=== PATIENT | male | born 1965 | race Caucasian/White ===

== ENCOUNTER 2019-04-17 09:51 | Inpatient (IN) | payer OTHER ==
[2019-04-17] MEDS ORDERED: Lantus Insulin SQ SCH (10:00)
[2019-04-17] MEDS ORDERED: Zofran 4 MG/2 ML VIAL IV PRN (10:48)
[2019-04-17] MEDS ORDERED: TYLENOL 325 MG PO PRN (11:00)
[2019-04-17] MEDS ORDERED: Colace 100 MG PO PRN (11:00)
[2019-04-17] MEDS: Sodium Chloride 0.9% 1000 ML 1,000 ML IV SCH ×2 (12:35→23:00)
[2019-04-17] MEDS: MORPHINE SULFATE 2 MG INJ IV PRN ×4 (12:38→22:21)
[2019-04-17 13:08] LABS: BASOPHIL % 0.3 % (0.0-0.4); Basophil (Absolute #) 0.03 (0-0.4); Eosinophil (Absolute #) 0.18 (0-0.5); Hematocrit 49.9 % (42-50); Hemoglobin 17.6 gm/dl (12.5-18.0); Lymphocyte (Absolute #) 2.67 (1.0-4.6); Lymphocytes % 30.1 % (24.0-44.0); Mean Cell Volume 85.3 fl (78-100); Mean Corpuscular Hemoglobin 30.1 pg (26-32); Mean Corpuscular Hgb Concent. 35.3 g/dl (32-36); Mean Platelet Volume 10.9 fl (7.5-11.0); Monocytes % 7.9 % (0.0-12.0); Neutrophil % 59.7 % (36.0-66.0); Platelet Count 233 K/mm3 (150-450); Red Blood Count 5.85 M/mm3 (4.1-5.6); Red Cell Distribution Width 12.9 % (11.5-14.0); White Blood Count 8.9 K/mm3 (4.0-10.5)
[2019-04-17 13:37] LABS: ALBUMIN 4.3 g/dL (3.5-5.0); ALKALINE PHOSPHATASE 123 U/L (38-126); AMYLASE 120 U/L (30-110); BLOOD UREA NITROGEN 16 mg/dL (9-20); CHLORIDE 102 mmol/L (98-107); Calcium 9.2 mg/dL (8.4-10.2); Carbon Dioxide 24 mmol/L (22-30); Creatinine 1 0.51 mg/dL (0.66-1.25); Direct Bilirubin 0.3 mg/dL (0.0-0.4); LIPASE 425 U/L (23-300); Potassium 4.1 mmol/L (3.5-5.1); SGOT/AST 19 U/L (17-59); SGPT/ALT 20 U/L (0-50); SODIUM 135 mmol/L (137-145); Total Protein 8.2 g/dL (6.3-8.2)
[2019-04-17 14:39] LABS: Glucose 324 mg/dL (74-106)
[2019-04-17] MEDS: Nicoderm CQ 21 MG TOP SCH (16:12)
[2019-04-17] MEDS: HUMALOG SQ PRN ×2 (18:59→22:05)
[2019-04-18] MEDS: MORPHINE SULFATE 2 MG INJ IV PRN (04:44)
[2019-04-18] MEDS: Sodium Chloride 0.9% 1000 ML 1,000 ML IV SCH (08:36)
--- NOTE | 2019-04-18 08:40 | PCM.HP ---
History of Present Illness - Chief Complaint Chief Complaint: Pancreatitis Date: 04/18/19 History of Present Illness: is a 53 year old male with history of pancreatitis. He presented to my clinic for follow up from being at outside ER for pancreatitis on 04/14/19. He had a CT scan done there. He was sent home from the ER. He was found to have a lung nodule on chest CT and concern for possible aneursym on chest CT with measurement of ascending aorta at 4 cm. Patient reports continued boring pain from epigastric area to back and that the morphine is not helping much. I offered dilaudid and he states he can't take that. He would like to try more solid foods. He reports he hasn't been drinking very much but had a sprite and some juice. He states he will be able to fill his medications when he is discharged. He wants to quit smoking and wants to use nicotine patches for that. He denies using alcohol. He has hx of cholecystectomy in the past. He is suppose to take atorvastatin, glipizide, lantus, lisinopril and pantoprazole at home but has not been doing this. - Review of Systems Constitutional: No Symptoms Eyes: No Symptoms Ears, Nose, & Throat: No Symptoms Respiratory: No Symptoms Cardiac: No Symptoms Abdominal/Gastrointestinal: Abdominal Pain, No Nausea, No Vomiting, No Diarrhea Genitourinary Symptoms: No Symptoms Musculoskeletal: No Symptoms Skin: No Symptoms Neurological: No Symptoms Medications & Allergies Home Medications: Home Medication List No Reportable Medications [No Reported Medications] 04/17/19 [History Confirmed 04/17/19] Allergies/Adverse Reactions: Allergies Allergy/AdvReac Type Severity Reaction Status Date / Time hydromorphone HCl AdvReac ANXIETY Verified 04/17/19 11:51 [From Dilaudid] - Past Medical History Past Medical History: Yes Neurological History: No Pertinent History ENT History: No Pertinent History Cardiac History: Hypertension Respiratory History: No Pertinent History Endocrine Medical History: Diabetes Type II, Other (hyperlipidemia.) Musculoskelatal History: No Pertinent History GI Medical History: Pancreatitis History: No Pertinent History Pyscho-Social History: Anxiety Male Reproductive Disorders: No Pertinent History Comment: bulging disc - Past Surgical History Past Surgical History: Yes Neuro Surgical History: No Pertinent History Cardiac History: No Pertinent History Respiratory Surgery: No Pertinent History GI Surgical History: Cholecystectomy Genitourinary Surgical Hx: No Pertinent History Musculskeletal Surgical Hx: Orthopedic Surgery Male Surgical History: No Pertinent History Other Surgical History: carpal tunnel L hand - Social History Smoking Status: Current every day smoker How long have you smoked: 40 years Exposure to second hand smoke: Yes Alcohol: None Drug Use: none - Physical Exam Vital Signs: Vital Signs - 24 hr Temp Pulse Resp BP Pulse Ox 04/18/19 07:41 98.4 F 74 18 123/62 94 L 04/18/19 04:00 98.2 F 75 18 121/75 93 L 04/18/19 00:00 98.4 F 74 18 129/75 94 L 04/17/19 20:00 98.4 F 80 20 128/75 94 L 04/17/19 16:00 98.2 F 82 18 124/76 95 04/17/19 15:55 18 04/17/19 12:06 98.1 F 93 H 18 153/63 96 04/17/19 10:16 98.1 F 93 H 18 153/63 96 04/17/19 10:06 98.1 F 93 H 18 153/83 96 General Appearance: no apparent distress Neurologic Exam: alert, normal mood/affect Respiratory Exam: normal breath sounds, lungs clear, No crackles/rales, No rhonchi, No wheezing Cardiovascular Exam: regular rate/rhythm, normal heart sounds, No murmur, No friction rub, No gallop Gastrointestinal/Abdomen Exam: soft, normal bowel sounds, tenderness, No distention, No mass, No guarding Extremity Exam: other (no c/c/e) Results - Labs Lab/Micro Results: Accuchecks Date 04/17/19 Time 21:30 Accucheck Value: 194 Accucheck Value: 212 Accucheck Value: 302 Lab Results-Last 24 Hours 04/17/19 04/17/19 04/17/19 Range/Units 12:45 12:45 13:00 WBC 8.9 (4.0-10.5) K/mm3 RBC 5.85 H (4.1-5.6) M/mm3 Hgb 17.6 (12.5-18.0) gm/dl Hct 49.9 (42-50) % MCV 85.3 (78-100) fl MCH 30.1 (26-32) pg MCHC 35.3 (32-36) g/dl RDW 12.9 (11.5-14.0) % Plt Count 233 (150-450) K/mm3 MPV 10.9 (7.5-11.0) fl Gran % 59.7 (36.0-66.0) % Eos # (Auto) 0.18 (0-0.5) Absolute Lymphs (auto) 2.67 (1.0-4.6) Absolute Monos (auto) 0.70 (0.0-1.3) Lymphocytes % 30.1 (24.0-44.0) % Monocytes % 7.9 (0.0-12.0) % Eosinophils % 2.0 (0.00-5.0) % Basophils % 0.3 (0.0-0.4) % Absolute Granulocytes 5.30 (1.4-6.9) Basophils # 0.03 (0-0.4) Sodium 135 L (137-145) mmol/L Potassium 4.1 (3.5-5.1) mmol/L Chloride 102 (98-107) mmol/L Carbon Dioxide 24 (22-30) mmol/L Anion Gap 13.0 (5-15) MEQ/L BUN 16 (9-20) mg/dL Creatinine 0.51 L (0.66-1.25) mg/dL Estimated GFR > 60.0 ML/MIN Glucose 324 H (74-106) mg/dL Hemoglobin A1c 12.57 H (4.5-6.0) % Calcium 9.2 (8.4-10.2) mg/dL Total Bilirubin 0.50 (0.2-1.3) mg/dL Direct Bilirubin 0.3 (0.0-0.4) mg/dL AST 19 (17-59) U/L ALT 20 (0-50) U/L Alkaline Phosphatase 123 (38-126) U/L Serum Total Protein 8.2 (6.3-8.2) g/dL Albumin 4.3 (3.5-5.0) g/dL Amylase 120 H (30-110) U/L Lipase 425 H (23-300) U/L TSH 3rd Generation 2.060 (0.47-4.68) mIU/L Accuchecks Date 04/17/19 Time 21:30 Accucheck Value: 194 Accucheck Value: 212 Accucheck Value: 302 - Radiology Impressions Radiology Exams & Impressions: Radiology Procedures Category Date Time Status ECHO W/2D AND DOPPLER [US] Routine Exams 04/17/19 10:45 Taken Assessment/Plan (1) Acute pancreatitis Current Visit: No Status: Acute Assessment & Plan: Continue with IV fluids and IV pain medication. Try to advance diet if tolerated. Will check lipid panel to look for high triglycerides that may be causing pancreatitis. Code(s): K85.9 - ACUTE PANCREATITIS, UNSPECIFIED * DO NOT USE * (2) Diabetes mellitus type 2, uncontrolled Current Visit: Yes Status: Acute Assessment & Plan: Diabetes is uncontrolled due to patient noncompliance. Will increase lantus from 20 units to 30 units and continue low dose sliding scale of short acting insulin. Code(s): E11.65 - TYPE 2 DIABETES MELLITUS WITH HYPERGLYCEMIA (3) Mixed hyperlipidemia Current Visit: Yes Status: Acute Assessment & Plan: Lipid panel ordered. Not done this am. Scheduled for tomorrow. Code(s): E78.2 - MIXED HYPERLIPIDEMIA (4) Essential hypertension Current Visit: Yes Status: Acute Assessment & Plan: Off of tariq inhibitor at this time. Blood pressure good right now. Code(s): I10 - ESSENTIAL (PRIMARY) HYPERTENSION (5) GERD (gastroesophageal reflux disease) Current Visit: Yes Status: Acute Assessment & Plan: Will start IV pantoprazole. Code(s): K21.9 - GASTRO-ESOPHAGEAL REFLUX DISEASE WITHOUT ESOPHAGITIS (6) Lung nodule, solitary Current Visit: Yes Status: Acute Assessment & Plan: Outpatient follow up planned with class a lineman. Code(s): R91.1 - SOLITARY PULMONARY NODULE (7) Dilatation of aorta Current Visit: Yes Status: Acute Assessment & Plan: echo done, no reading yet. outpatient follow up planned with cardiology. Code(s): I77.819 - AORTIC ECTASIA, UNSPECIFIED SITE (8) Tobacco abuse Current Visit: Yes Status: Acute Assessment & Plan: Patient wants to quit and wants nicotine patches at discharge. Code(s): Z72.0 - TOBACCO USE
[2019-04-18] MEDS: MORPHINE SULFATE 4 MG INJ IV PRN ×4 (09:18→21:15)
[2019-04-18] MEDS: PROTONIX 40 MG IV IV SCH (09:18)
[2019-04-18] MEDS: Lantus Insulin SQ SCH (09:19)
[2019-04-18] MEDS: Nicoderm CQ 21 MG TOP SCH (15:21)
[2019-04-18] MEDS: HUMALOG SQ PRN (17:32)
[2019-04-18] MEDS ORDERED: ZOCOR 20MG PO SCH (22:00)
[2019-04-19] MEDS: MORPHINE SULFATE 4 MG INJ IV PRN (04:43)
[2019-04-19 05:16] LABS: Risk Ratio 8.8
[2019-04-19 07:43] VITALS: BP 119/76; PULSE 73; O2SAT 96
--- NOTE | 2019-04-19 07:45 | PCM.DCORD ---
- Discharge Discharge Date: 04/19/19 Disposition: Home, Self-Care Condition: Good Prescriptions: New Atorvastatin Calcium 40 mg PO DAILY #30 tablet Glipizide [Glipizide ER] 10 mg PO DAILY #30 tab.er.24 Nicotine 21 mg [Nicoderm CQ 21 MG] 21 mg TOP Q24H #30 patch Hydrocodone/APAP 5-325 Tab^^^ [[place] 5-325 Tablet^^^] 1 each PO QID PRN #24 tablet MDD 6 PRN Reason: Pain Pantoprazole 40 mg [Protonix 40 mg IV] 40 mg PO DAILY #30 vial Lisinopril 10 mg [Zestril 10 MG] 10 mg PO DAILY #30 tablet Follow up with: ROSS SAHU [Primary Care Provider] - 1 Week
[2019-04-19] MEDS: PROTONIX 40 MG IV IV SCH (07:51)
[2019-04-19] MEDS: Lantus Insulin SQ SCH (09:06)
--- NOTE | 2019-04-20 10:41 | ECHO ---
Transthoracic echocardiographic examination and color Doppler was done on 04/17/2019. INDICATION: Hypertension. IMPRESSION: 1) NO REGIONAL WALL MOTION ABNORMALITY. ESTIMATED GLOBAL LEFT VENTRICULAR EJECTION FRACTION OF ABOUT 60 TO 65%. 2) TRACE TRICUSPID REGURGITATION. RIGHT VENTRICULAR SYSTOLIC PRESSURE OF 29 MM OF MERCURY. 3) LEFT VENTRICULAR HYPERTROPHY. 4) LEFT VENTRICULAR DIASTOLIC DYSFUNCTION. The left ventricle is visualized and demonstrated adequate motion of all the segments. Estimated global left ventricular ejection fraction between 60 and 65%. There is mild left ventricular hypertrophy. The mitral valve is seen and this opens adequately. There is no significant mitral regurgitation. Tissue Doppler study of lateral mitral annulus suggestive of left ventricular diastolic dysfunction. The aortic valve opens adequately. There is no significant gradient across the left ventricular outflow tract. The right side chambers are normal with normal right ventricular contractility. There is trace tricuspid regurgitation. The right ventricular systolic pressure of 29 mm of Mercury.
--- NOTE | 2019-04-20 11:53 | DS ---
DISCHARGE DIAGNOSES: 1) ACUTE PANCREATITIS. 2) DIABETES MELLITUS TYPE 2, UNCONTROLLED. 3) HYPERLIPIDEMIA. 4) HYPERTENSION. 5) GASTROESOPHAGEAL REFLUX DISEASE. 6) LUNG NODULE. 7) DILATATION OF THE AORTA. 8) TOBACCO ABUSE. DISCHARGE PHYSICAL EXAMINATION: VITALS: Temperature current 98.0F, temperature 99.0F, heart rate 73, respiratory rate 18, blood pressure 119/76. Oxygen saturation 96% on room air. GENERAL: The patient is lying in bed a pleasant talkative man in no acute distress. CVS: He has a regular rate and rhythm. No murmurs, gallops or rubs. CHEST: Clear to auscultation bilaterally. No crackles or wheezes. ABDOMEN: Soft, nontender, nondistended with normal bowel sounds. EXTREMITIES: No clubbing, cyanosis or edema. SKIN: Warm, dry and intact. HOSPITAL COURSE: 1) ACUTE PANCREATITIS: He was given IV fluids and a clear liquid diet and this was advanced to full diet which he tolerated well. His pain was controlled with IV morphine 4 mg every two hours as needed. The patient reported he did want to go home with some medication. We discussed that this will be short term and he would need to keep it in a safe place and not share it with anyone. INSPECT was reviewed and no prescriptions were found for the patient for the past year. The patient will follow up with me closely in clinic. He does have a history of pancreatitis and denies alcohol use and has had his gallbladder taken out already. His triglycerides were slightly elevated and this could contribute to pancreatitis. 2) DIABETES MELLITUS TYPE 2, UNCONTROLLED: The patient had been off all of his medications. He has a history of noncompliance. He reported he would be taking his medicines. He wanted to try Lantus 10 instead of vile and so this was sent along with the glipizide again to follow up closely in the clinic. His hemoglobin A1C was 12.5. 3) MIXED HYPERLIPIDEMIA: His total cholesterol is 201, triglycerides 260, LDL 152, HDL 23. He had been noncompliant with his statin so this was restarted. 4) HYPERTENSION: He was restarted on his home antihypertensive medicine. 5) GASTROESOPHAGEAL REFLUX DISEASE: Will restart him on proton pump inhibitor at home. I was giving this to him IV here in the hospital. 6) LUNG NODULE: This was found on CT scan done for the pancreatitis in an outside emergency room and he has follow up scheduled with a diving fisher. 7) DILATATION OF THE AORTA: Again, found on CT scan on outside emergency room and he is scheduled for follow up with fiber optic technician. 8) TOBACCO ABUSE: The patient states he wants to quit. Script was sent for nicotine patches to help with this. He was instructed not to smoke while on the nicotine patch. DISCHARGE MEDICATIONS: Please see the discharge order. DISPOSITION: The patient was discharged to home in fair condition to follow up closely with me in the clinic.
== END 2019-04-19 09:10 | disposition home or self-care (01) | DRG 440 ==
LOC: MED SURG 10:06
PROVIDERS: ADMIT Internal Medicine; ATTEND Internal Medicine
DX: K85.90 Acute pancreatitis without necrosis or infection, unspecified (principal); E11.65 Type 2 diabetes mellitus with hyperglycemia; E78.2 Mixed hyperlipidemia; I10 Essential (primary) hypertension; K21.9 Gastro-esophageal reflux disease without esophagitis; R91.1 Solitary pulmonary nodule; I77.819 Aortic ectasia, unspecified site; Z72.0 Tobacco use
CPT/HCPCS: 36415; 80053; 80061; 80076; 82150; 82947; 82962; 83036; 83690; 83721; 84443; 85025; 93005; 93306; J1817; J2270; A9270-GY

== ENCOUNTER 2019-06-02 15:41 | Emergency (ER) | payer OTHER ==
[2019-06-02] MEDS ORDERED: BENADRYL 50 MG/ML IV ONE (15:57)
[2019-06-02] MEDS ORDERED: Reglan 10 MG/2 ML IV ONE (15:57)
[2019-06-02] MEDS ORDERED: MORPHINE SULFATE 2 MG INJ IV ONE (15:57)
[2019-06-02] MEDS ORDERED: Sodium Chloride 0.9% 1000 ML 1,000 ML IV STA (15:57)
[2019-06-02] MEDS ORDERED: TORAdol 30 mg Injection IV ONE (15:57)
--- NOTE | 2019-06-02 16:11 | ERPHSYRPT ---
- History of Present Illness Time Seen by Provider: 06/02/19 15:47 Source: patient Exam Limitations: no limitations Physician History: Patient is here with epigastric pain. Radiates into his back. Known history of pancreatitis. Has been going on for 3 days. No known falls or trauma. No fevers no chills. Location: mid-epigastric Quality: sharp Radiation: into back Severity: moderate Duration: 2-3 days Timing: gradual Modifying factors/associated signs and symptoms: has not taken any pain meds, called PCP, sent in here Timing/Duration: today Allergies/Adverse Reactions: hydromorphone HCl [From Dilaudid] Adverse Reaction (Verified 06/02/19 15:56) ANXIETY Hx Tetanus, Diphtheria Vaccination/Date Given: No Hx Influenza Vaccination/Date Given: No Hx Pneumococcal Vaccination/Date Given: No - Review of Systems Constitutional: No Fever, No Chills Eyes: No Symptoms Ears, Nose, & Throat: No Symptoms Respiratory: No Cough, No Dyspnea Cardiac: No Chest Pain, No Edema, No Syncope Abdominal/Gastrointestinal: Abdominal Pain, Nausea, No Vomiting, No Diarrhea Genitourinary Symptoms: No Dysuria Musculoskeletal: No Back Pain, No Neck Pain Skin: No Rash Neurological: No Dizziness, No Focal Weakness, No Sensory Changes Psychological: No Symptoms Endocrine: No Symptoms All Other Systems: Reviewed and Negative - Past Medical History Pertinent Past Medical History: Yes Neurological History: No Pertinent History ENT History: No Pertinent History Cardiac History: Hypertension Respiratory History: No Pertinent History Endocrine Medical History: Diabetes Type II, Other (hyperlipidemia.) Musculoskeletal History: No Pertinent History GI Medical History: Pancreatitis History: No Pertinent History Psycho-Social History: Anxiety Male Reproductive Disorders: No Pertinent History Other Medical History: bulging disc - Past Surgical History Past Surgical History: Yes Neuro Surgical History: No Pertinent History Cardiac: No Pertinent History Respiratory: No Pertinent History Gastrointestinal: Cholecystectomy Genitourinary: No Pertinent History Musculoskeletal: Orthopedic Surgery Male Surgical History: No Pertinent History Other Surgical History: carpal tunnel L hand - Social History Smoking Status: Current every day smoker How long have you smoked: 40 years Exposure to second hand smoke: Yes Drug Use: none Patient Lives Alone: No - Nursing Vital Signs Nursing Vital Signs: Initial Vital Signs Temperature 99.4 F 06/02/19 15:58 Pulse Rate 96 H 06/02/19 15:58 Blood Pressure 126/90 06/02/19 15:58 O2 Sat by Pulse Oximetry 98 06/02/19 15:58 Pain Scale Pain Intensity 0 - Physical Exam General Appearance: no apparent distress, alert Eye Exam: PERRL/EOMI, eyes nml inspection Ears, Nose, Throat Exam: normal ENT inspection, TMs normal, pharynx normal, moist mucous membranes Neck Exam: normal inspection, non-tender, supple, full range of motion Respiratory Exam: normal breath sounds, lungs clear, No respiratory distress Cardiovascular Exam: regular rate/rhythm, normal heart sounds, normal peripheral pulses Gastrointestinal/Abdomen Exam: soft, normal bowel sounds, tenderness ( Generalized abdominal pain without rebound or guarding), No mass Back Exam: normal inspection, normal range of motion, No CVA tenderness, No vertebral tenderness Extremity Exam: normal inspection, normal range of motion, pelvis stable Neurologic Exam: alert, oriented x 3, cooperative, normal mood/affect, nml cerebellar function, nml station & gait, sensation nml, No motor deficits Skin Exam: normal color, warm, dry, No rash Lymphatic Exam: No adenopathy Ordered Tests: Active Orders 24 hr Category Date Time Status EKG-ER Only STAT Care 06/02/19 15:57 Active IV Insertion STAT Care 06/02/19 15:57 Active ABDOMEN AND PELVIS W CONTRAST [CT] Stat Exams 06/02/19 15:58 Completed CHEST 2 VIEWS (PA AND LAT) Stat Exams 06/02/19 15:58 Completed AMYLASE Stat Lab 06/02/19 16:00 Completed CBC W DIFF Stat Lab 06/02/19 16:00 Completed CMP Stat Lab 06/02/19 16:00 Completed LIPASE Stat Lab 06/02/19 16:00 Completed Lactic Acid Stat Lab 06/02/19 16:10 Completed TROPONIN Q3H Lab 06/02/19 16:00 Completed TROPONIN Q3H Lab 06/02/19 19:00 Ordered TROPONIN Q3H Lab 06/02/19 22:00 Ordered TROPONIN Q3H Lab 06/03/19 01:00 Ordered TROPONIN Q3H Lab 06/03/19 04:00 Ordered UA W/RFX UR CULTURE Stat Lab 06/02/19 16:00 Completed Urine Triage Profile Stat Lab 06/02/19 16:00 Completed Medication Summary Discontinued Medications Generic Name Dose Route Start Last Admin Trade Name Freq PRN Reason Stop Dose Admin Diphenhydramine HCl 25 mg 06/02/19 15:57 06/02/19 16:24 Benadryl 50 Mg/Ml IV 06/02/19 15:58 25 mg STAT ONE Administration Diphenhydramine HCl Confirm 06/02/19 16:20 Benadryl 50 Mg/Ml Administered 06/02/19 16:21 Dose 50 mg .ROUTE .STK-MED ONE Sodium Chloride 1,000 mls @ 999 mls/hr 06/02/19 15:57 06/02/19 16:25 Sodium Chloride 0.9% 1000 Ml IV 06/02/19 16:57 999 mls/hr .Q1H1M STA Administration Sodium Chloride Confirm 06/02/19 16:20 Sodium Chloride 0.9% 1000 Ml Administered 06/02/19 16:21 Dose 1,000 mls @ ud .ROUTE .STK-MED ONE Ketorolac Tromethamine 30 mg 06/02/19 15:57 06/02/19 16:25 Toradol 30 Mg Injection IV 06/02/19 15:58 30 mg STAT ONE Administration Ketorolac Tromethamine Confirm 06/02/19 16:20 Toradol 30 Mg Injection Administered 06/02/19 16:21 Dose 30 mg .ROUTE .STK-MED ONE Metoclopramide HCl 10 mg 06/02/19 15:57 06/02/19 16:24 Reglan 10 Mg/2 Ml IV 06/02/19 15:58 10 mg STAT ONE Administration Metoclopramide HCl Confirm 06/02/19 16:20 Reglan 10 Mg/2 Ml Administered 06/02/19 16:21 Dose 10 mg .ROUTE .STK-MED ONE Morphine Sulfate 2 mg 06/02/19 15:57 06/02/19 16:25 Morphine Sulfate 2 Mg Inj IV 06/02/19 15:58 2 mg STAT ONE Administration Morphine Sulfate Confirm 06/02/19 16:20 Morphine Sulfate 2 Mg Inj Administered 06/02/19 16:21 Dose 2 mg .ROUTE .STK-MED ONE Lab/Rad Data: Laboratory Result Diagrams 06/02/19 16:00 06/02/19 16:00 Laboratory Results 06/02/19 06/02/19 06/02/19 Range/Units 16:10 16:00 16:00 WBC (4.0-10.5) K/mm3 RBC (4.1-5.6) M/mm3 Hgb (12.5-18.0) gm/dl Hct (42-50) % MCV (78-100) fl MCH (26-32) pg MCHC (32-36) g/dl RDW (11.5-14.0) % Plt Count (150-450) K/mm3 MPV (7.5-11.0) fl Gran % (36.0-66.0) % Eos # (Auto) (0-0.5) Absolute Lymphs (auto) (1.0-4.6) Absolute Monos (auto) (0.0-1.3) Lymphocytes % (24.0-44.0) % Monocytes % (0.0-12.0) % Eosinophils % (0.00-5.0) % Basophils % (0.0-0.4) % Absolute Granulocytes (1.4-6.9) Basophils # (0-0.4) Sodium (137-145) mmol/L Potassium (3.5-5.1) mmol/L Chloride (98-107) mmol/L Carbon Dioxide (22-30) mmol/L Anion Gap (5-15) MEQ/L BUN (9-20) mg/dL Creatinine (0.66-1.25) mg/dL Estimated GFR ML/MIN Glucose (74-106) mg/dL Lactic Acid 1.5 (0.4-2.0) Calcium (8.4-10.2) mg/dL Total Bilirubin (0.2-1.3) mg/dL AST (17-59) U/L ALT (0-50) U/L Alkaline Phosphatase (38-126) U/L Troponin I (0.000-0.034) ng/mL Serum Total Protein (6.3-8.2) g/dL Albumin (3.5-5.0) g/dL Amylase (30-110) U/L Lipase (23-300) U/L Urine Color YELLOW (YELLOW) Urine Appearance CLEAR (CLEAR) Urine pH 6.0 (5-6) Ur Specific [place] 1.015 (1.005-1.025) Urine Protein 30 (Negative) Urine Ketones NEGATIVE (NEGATIVE) Urine Blood NEGATIVE (0-5) Papi/ul Urine Nitrite NEGATIVE (NEGATIVE) Urine Bilirubin NEGATIVE (NEGATIVE) Urine Urobilinogen 2 (0-1) mg/dL Ur Leukocyte Esterase NEGATIVE (NEGATIVE) Urine WBC (Auto) NONE (0-5) /HPF Urine RBC (Auto) NONE (0-2) /HPF U Epithel Cells (Auto) NONE (FEW) /HPF Urine Bacteria (Auto) NONE (NEGATIVE) /HPF Urine Mucus (Auto) SLIGHT (NEGATIVE) /HPF Urine Culture Reflexed NO (NO) Urine Glucose NEGATIVE (NEGATIVE) mg/dL Urine Opiates Level NEGATIVE (NEGATIVE) Ur Methadone NEGATIVE (NEGATIVE) Urine Barbiturates NEGATIVE (NEGATIVE) Ur Phencyclidine (PCP) NEGATIVE (NEGATIVE) Urine Amphetamine NEGATIVE (NEGATIVE) U Benzodiazepine Level NEGATIVE (NEGATIVE) Urine Cocaine NEGATIVE (NEGATIVE) Urine Marijuana (THC) NEGATIVE (NEGATIVE) 06/02/19 06/02/19 06/02/19 Range/Units 16:00 16:00 16:00 WBC 9.3 (4.0-10.5) K/mm3 RBC 5.56 (4.1-5.6) M/mm3 Hgb 16.7 (12.5-18.0) gm/dl Hct 48.8 (42-50) % MCV 87.8 (78-100) fl MCH 30.0 (26-32) pg MCHC 34.2 (32-36) g/dl RDW 13.4 (11.5-14.0) % Plt Count 262 (150-450) K/mm3 MPV 9.7 (7.5-11.0) fl Gran % 60.7 (36.0-66.0) % Eos # (Auto) 0.14 (0-0.5) Absolute Lymphs (auto) 2.57 (1.0-4.6) Absolute Monos (auto) 0.90 (0.0-1.3) Lymphocytes % 27.7 (24.0-44.0) % Monocytes % 9.7 (0.0-12.0) % Eosinophils % 1.5 (0.00-5.0) % Basophils % 0.4 (0.0-0.4) % Absolute Granulocytes 5.64 (1.4-6.9) Basophils # 0.04 (0-0.4) Sodium 136 L (137-145) mmol/L Potassium 4.1 (3.5-5.1) mmol/L Chloride 102 (98-107) mmol/L Carbon Dioxide 23 (22-30) mmol/L Anion Gap 16.2 H (5-15) MEQ/L BUN 13 (9-20) mg/dL Creatinine 0.63 L (0.66-1.25) mg/dL Estimated GFR > 60.0 ML/MIN Glucose 180 H (74-106) mg/dL Lactic Acid (0.4-2.0) Calcium 9.3 (8.4-10.2) mg/dL Total Bilirubin 0.80 (0.2-1.3) mg/dL AST 20 (17-59) U/L ALT 19 (0-50) U/L Alkaline Phosphatase 87 (38-126) U/L Troponin I < 0.012 (0.000-0.034) ng/mL Serum Total Protein 8.3 H (6.3-8.2) g/dL Albumin 4.5 (3.5-5.0) g/dL Amylase 100 (30-110) U/L Lipase 80 (23-300) U/L Urine Color (YELLOW) Urine Appearance (CLEAR) Urine pH (5-6) Ur Specific [place] (1.005-1.025) Urine Protein (Negative) Urine Ketones (NEGATIVE) Urine Blood (0-5) Papi/ul Urine Nitrite (NEGATIVE) Urine Bilirubin (NEGATIVE) Urine Urobilinogen (0-1) mg/dL Ur Leukocyte Esterase (NEGATIVE) Urine WBC (Auto) (0-5) /HPF Urine RBC (Auto) (0-2) /HPF U Epithel Cells (Auto) (FEW) /HPF Urine Bacteria (Auto) (NEGATIVE) /HPF Urine Mucus (Auto) (NEGATIVE) /HPF Urine Culture Reflexed (NO) Urine Glucose (NEGATIVE) mg/dL Urine Opiates Level (NEGATIVE) Ur Methadone (NEGATIVE) Urine Barbiturates (NEGATIVE) Ur Phencyclidine (PCP) (NEGATIVE) Urine Amphetamine (NEGATIVE) U Benzodiazepine Level (NEGATIVE) Urine Cocaine (NEGATIVE) Urine Marijuana (THC) (NEGATIVE) - Progress Progress: improved Progress Note: 06/02/19 16:10 differential diagnosis includes kidney stone, compression fracture, infection, UTI, triple AAA. STEMI, myocardial infarction, pancreatitis - basic labs including: CBC, lipase, CMP, UA, EKG, trop - insert IV for fluids, pain meds, nausea control - consider imaging: CT ab/pelvis 06/02/19 17:28 Labs and imaging probably shows acute pancreatitis. I did offer patient admission for continued fluids, pain control. He states he is feeling better. He would like to go home at this point in time. He is unsure of what causes his pancreatitis. Though it does appear that he has a history of this. Again I did offer patient admission to the hospital and he did declined. He will return here for any new or changing symptoms. He will follow-up with Dr. Sahu for abdominal reexam in 24 to 48 hours. - Departure Departure Disposition: Home Clinical Impression: Acute pancreatitis Condition: Stable Critical Care Time: No Referrals: ROSS SAHU [Primary Care Provider] - Instructions: Acute Abdomen (Belly Pain), Adult (DC) Prescriptions: Ondansetron HCl [Zofran] 4 mg PO TID PRN #10 tablet PRN Reason: Nausea/Vomiting
[2019-06-02] MEDS ORDERED: TORAdol 30 mg Injection ONE (16:20)
[2019-06-02] MEDS ORDERED: BENADRYL 50 MG/ML ONE (16:20)
[2019-06-02] MEDS ORDERED: Sodium Chloride 0.9% 1000 ML 1,000 ML ONE (16:20)
[2019-06-02] MEDS ORDERED: Reglan 10 MG/2 ML ONE (16:20)
[2019-06-02] MEDS ORDERED: MORPHINE SULFATE 2 MG INJ ONE (16:20)
[2019-06-02 16:21] LABS: Absolute Neutrophil Ct (ANC) 5.64 (1.4-6.9); BASOPHIL % 0.4 % (0.0-0.4); Basophil (Absolute #) 0.04 (0-0.4); Eosinophil % 1.5 % (0.00-5.0); Eosinophil (Absolute #) 0.14 (0-0.5); Hematocrit 48.8 % (42-50); Hemoglobin 16.7 gm/dl (12.5-18.0); Lymphocyte (Absolute #) 2.57 (1.0-4.6); Lymphocytes % 27.7 % (24.0-44.0); Mean Cell Volume 87.8 fl (78-100); Mean Corpuscular Hgb Concent. 34.2 g/dl (32-36); Mean Platelet Volume 9.7 fl (7.5-11.0); Monocytes % 9.7 % (0.0-12.0); Neutrophil % 60.7 % (36.0-66.0); Platelet Count 262 K/mm3 (150-450); Red Blood Count 5.56 M/mm3 (4.1-5.6); Red Cell Distribution Width 13.4 % (11.5-14.0); White Blood Count 9.3 K/mm3 (4.0-10.5)
[2019-06-02 16:23] LABS: Appearance CLEAR (CLEAR); Bilirubin NEGATIVE (NEGATIVE); Blood NEGATIVE Ery/ul (0-5); Glucose NEGATIVE (NEGATIVE); Ketones NEGATIVE (NEGATIVE); Leukocyte Esterase NEGATIVE (NEGATIVE); Mucus SLIGHT /HPF (NEGATIVE); Nitrite NEGATIVE (NEGATIVE); Protein,Urine Dip 30 (Negative); Specific Gravity 1.015 (1.005-1.025); Urobilinogen 2 mg/dL (0-1)
[2019-06-02 16:33] LABS: ALBUMIN 4.5 g/dL (3.5-5.0); ALKALINE PHOSPHATASE 87 U/L (38-126); AMYLASE 100 U/L (30-110); ANION GAP 16.2 MEQ/L (5-15); BLOOD UREA NITROGEN 13 mg/dL (9-20); CHLORIDE 102 mmol/L (98-107); Calcium 9.3 mg/dL (8.4-10.2); Carbon Dioxide 23 mmol/L (22-30); Creatinine 1 0.63 mg/dL (0.66-1.25); Glucose 180 mg/dL (74-106); LIPASE 80 U/L (23-300); Potassium 4.1 mmol/L (3.5-5.1); SGOT/AST 20 U/L (17-59); SGPT/ALT 19 U/L (0-50); SODIUM 136 mmol/L (137-145); Total Protein 8.3 g/dL (6.3-8.2)
[2019-06-02 16:37] LABS: Amphetamine,Urine NEGATIVE (NEGATIVE); Barbiturate,Urine NEGATIVE (NEGATIVE); Benzodiazepine,Urine NEGATIVE (NEGATIVE); Cocaine,Urine NEGATIVE (NEGATIVE); Methadone,Urine NEGATIVE (NEGATIVE); Opiate,Urine NEGATIVE (NEGATIVE); PCP,Urine NEGATIVE (NEGATIVE); THC,Urine NEGATIVE (NEGATIVE)
--- NOTE | 2019-06-02 17:12 | XRAY ---
Indication: Abdomen pain. Comparison: September 28, 2015. PA/lateral chest clear again with a few incidental calcified granulomas. Heart and mediastinal structures within normal limits. Bony thorax intact. Impression: Nonacute chest with evidence for old granulomatous disease.
--- NOTE | 2019-06-02 17:15 | XRAY ---
Indication: Abdomen/flank pain. History pancreatitis. Multiple contiguous axial images obtained through the abdomen and pelvis using 80 cc Isovue-370 contrast only. Comparison: September 28, 2015. Lung bases again demonstrates bibasilar dependent atelectasis without infiltrate or effusion. Small right middle lobe bleb. Heart is not enlarged. Noncontrasted stomach and bowel loops appear nonobstructed. New mild fluid distended small bowel loops with minimal fluid leveling, ileus versus enteritis. Normal air-filled appendix. There is again mild/moderate diffuse scattered colonic fecal debris. Head of the pancreas now demonstrates subtle haziness, possible early/mild pancreatitis. No free fluid/air. Stable cholecystectomy and large left lower pole renal cyst. Remaining liver, pancreas, spleen, adrenal glands, kidneys, ureters, and bladder appear unremarkable. Stable mild aortoiliac calcifications. No AAA or pathological retroperitoneal lymphadenopathy. Osseous structures intact. Impression: 1. New pancreatic head haziness. Rule out mild/early pancreatitis. 2. New mild fluid distended small bowel loops with minimal fluid leveling, ileus versus enteritis. 3. Again incidental diffuse fecal stasis without obstruction. 4. Stable large left renal cyst.
[2019-06-02 17:41] VITALS: BP 103/70; PULSE 85; O2SAT 97
== END 2019-06-02 18:12 | disposition home or self-care (01) ==
LOC: ED 15:41
DX: K85.90 Acute pancreatitis without necrosis or infection, unspecified (principal); F41.9 Anxiety disorder, unspecified; E11.9 Type 2 diabetes mellitus without complications; E78.5 Hyperlipidemia, unspecified; I10 Essential (primary) hypertension; Z72.0 Tobacco use
CPT/HCPCS: 36000; 36415; 71046; 74177; 80053; 80307; 81001; 82150; 83605; 83690; 84484; 85025; 93005; 96360; 96374; 96375; 99285; J1200; J1885; J2270

== ENCOUNTER 2020-06-06 22:10 | Emergency (ER) | payer OTHER ==
[2020-06-06] MEDS ORDERED: Sodium Chloride 0.9% 1000 ML 1,000 ML ONE (22:25)
[2020-06-06] MEDS ORDERED: Sodium Chloride 0.9% 1000 ML 1,000 ML IV SCH (22:30)
[2020-06-06 22:51] LABS: Absolute Neutrophil Ct (ANC) 4.78 (1.4-6.9); BASOPHIL % 0.5 % (0.0-0.4); Basophil (Absolute #) 0.05 (0-0.4); Eosinophil % 3.6 % (0.00-5.0); Eosinophil (Absolute #) 0.36 (0-0.5); Hematocrit 48.9 % (42-50); Hemoglobin 16.9 gm/dl (12.5-18.0); Lymphocyte (Absolute #) 3.68 (1.0-4.6); Lymphocytes % 36.7 % (24.0-44.0); Mean Cell Volume 87.8 fl (78-100); Mean Corpuscular Hemoglobin 30.3 pg (26-32); Mean Corpuscular Hgb Concent. 34.6 g/dl (32-36); Monocyte (Absolute #) 1.17 (0.0-1.3); Monocytes % 11.7 % (0.0-12.0); Neutrophil % 47.5 % (36.0-66.0); Platelet Count 237 K/mm3 (150-450); Red Blood Count 5.57 M/mm3 (4.1-5.6); Red Cell Distribution Width 13.4 % (11.5-14.0)
[2020-06-06 23:02] LABS: ALBUMIN 4.5 g/dL (3.5-5.0); ALKALINE PHOSPHATASE 94 U/L (38-126); ANION GAP 15.1 MEQ/L (5-15); BLOOD UREA NITROGEN 20 mg/dL (9-20); CHLORIDE 97 mmol/L (98-107); Calcium 9.5 mg/dL (8.4-10.2); Carbon Dioxide 26 mmol/L (22-30); Creatinine 1 0.83 mg/dL (0.66-1.25); EST GLOMERULAR FILTRATION RATE > 60.0 ML/MIN; Glucose 292 mg/dL (74-106); MAGNESIUM 2.1 mg/dL (1.6-2.3); Potassium 4.4 mmol/L (3.5-5.1); SGOT/AST 19 U/L (17-59); SGPT/ALT 24 U/L (0-50); SODIUM 133 mmol/L (137-145); Total Protein 7.9 g/dL (6.3-8.2)
--- NOTE | 2020-06-07 00:14 | ERPHSYRPT ---
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 Pt thinks it was an anxiety attack. 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 Pt denies any c/p at this time. Pt did not experience any sob or n/v. Pt did become diaphoretic and dizzy but states, "I was working in a very hot area". Pt denies any radiation with his chest pain. EMS reported BS of 338. Pt c/o headache to back of head. Physician History: Patient is a 54-year-old male presents to our ED for evaluation of chest pain. 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 Pain described as an ache localized to the left upper chest. Pain lasted approximately 10 minutes. However upon EMS arrival oxygen was placed and chest pain resolved. Patient was very anxious. He thinks his pain is partially due to anxiety. Patient felt mildly diaphoretic. He was slightly dizzy. Patient states he felt very hot. The pain was well localized. No radiation. Patient advises he is a diabetic. Glucose was 338. Patient had that he has a slight posterior head ache. No trauma. Patient voices no other complaints or concerns at this time. Patient advises that he has a history of a sending thoracic aneurysm. Timing/Duration: today Activities at Onset: none Quality: aching Location: substernal Chest Pain Radiation: no radiation Severity of Pain-Max: moderate Severity of Pain-Current: none Modifying Factors: Improves With: nothing Associated Symptoms: diaphoresis, headache, dizziness Prior Chest Pain/Cardiac Workup: no prior chest pain Nitro Today/Relief: no nitro taken today Aspirin Treatment Today: no aspirin today Allergies/Adverse Reactions: hydromorphone HCl [From Dilaudid] Adverse Reaction (Verified 06/06/20 22:29) ANXIETY itching Home Medications: Aspirin 81 gm Chew [Baby Aspirin 81 mg Chew] 81 mg PO DAILY 06/06/20 [History] Atorvastatin Calcium 20 mg PO DAILY 06/06/20 [History] Hx Tetanus, Diphtheria Vaccination/Date Given: Yes Hx Influenza Vaccination/Date Given: No Hx Pneumococcal Vaccination/Date Given: No Immunizations Up to Date: Yes Travel Risk - International Travel Have you traveled outside of the country in past 3 weeks: No - Coronavirus Screening Are you exhibiting any of the following symptoms?: No Close contact with a COVID-19 positive Pt in past 14-21 Days: No - Vaccine Status Have you recieved a Covid-19 vaccination: No - Review of Systems Constitutional: No Symptoms, No Fever, No Chills Eyes: No Symptoms Ears, Nose, & Throat: No Symptoms Respiratory: No Symptoms, No Cough, No Dyspnea Cardiac: No Symptoms, No Chest Pain, No Edema, No Syncope Abdominal/Gastrointestinal: No Symptoms, No Abdominal Pain, No Nausea, No Vomiting, No Diarrhea Genitourinary Symptoms: No Symptoms, No Dysuria Musculoskeletal: No Symptoms, No Back Pain, No Neck Pain Skin: No Symptoms, No Rash Neurological: No Symptoms, No Dizziness, No Focal Weakness, No Sensory Changes Psychological: No Symptoms Endocrine: No Symptoms Hematologic/Lymphatic: No Symptoms Immunological/Allergic: No Symptoms All Other Systems: Reviewed and Negative - Past Medical History Pertinent Past Medical History: Yes Neurological History: No Pertinent History ENT History: No Pertinent History Cardiac History: Hypertension Respiratory History: No Pertinent History Endocrine Medical History: Diabetes Type II, Other Musculoskeletal History: No Pertinent History GI Medical History: Gallbladder Disease, Pancreatitis History: No Pertinent History Psycho-Social History: Anxiety Male Reproductive Disorders: No Pertinent History Other Medical History: bulging disc, aortic aneurysm - Past Surgical History Past Surgical History: Yes Neuro Surgical History: No Pertinent History Cardiac: No Pertinent History Respiratory: No Pertinent History Gastrointestinal: Cholecystectomy Genitourinary: No Pertinent History Musculoskeletal: Orthopedic Surgery Male Surgical History: No Pertinent History Other Surgical History: carpal tunnel L hand - Social History Smoking Status: Current every day smoker How long have you smoked: 40 yrs Exposure to second hand smoke: No Drug Use: none Patient Lives Alone: No - Nursing Vital Signs Nursing Vital Signs: Initial Vital Signs Temperature 98.4 F 06/06/20 22:11 Pulse Rate 84 06/06/20 22:11 Respiratory Rate 18 06/06/20 22:11 Blood Pressure 118/74 06/06/20 22:11 O2 Sat by Pulse Oximetry 95 06/06/20 22:11 Pain Scale Pain Intensity 0 - Physical Exam General Appearance: no apparent distress, alert Eye Exam: PERRL/EOMI, eyes nml inspection Ears, Nose, Throat Exam: normal ENT inspection, moist mucous membranes Neck Exam: normal inspection, non-tender, supple, full range of motion Respiratory Exam: normal breath sounds, lungs clear, No respiratory distress Cardiovascular Exam: regular rate/rhythm, normal heart sounds Gastrointestinal/Abdomen Exam: soft, No tenderness, No mass Back Exam: normal inspection, No CVA tenderness, No vertebral tenderness Extremity Exam: normal inspection, normal range of motion Neurologic Exam: alert, oriented x 3, cooperative, normal mood/affect, sensation nml, No motor deficits Skin Exam: normal color, warm, dry Lymphatic Exam: adenopathy SpO2 Interpretation: normal SpO2: 96 O2 Delivery: Room Air - Course Nursing assessment & vital signs reviewed: Yes EKG Interpreted by Me: RATE ([id number]), Sinus Rhythm, NORMAL AXIS, NORMAL INTERVALS - CT Exams Chest CT Interpretation: Tele-radiologist Report (No evidence of pulmonary embolus. No evidence of acute pulmonary pathology. 6 mm groundglass nodule in the right lung upper lobe. Few minimally enlarged mediastinal lymph nodes. Left renal cyst.) Ordered Tests: Active Orders 24 hr Category Date Time Status Gynecology Teacher STAT Care 06/06/20 22:20 Active EKG-ER Only STAT Care 06/06/20 22:18 Active IV Insertion STAT Care 06/06/20 22:18 Active Pulse Oximetry (ED) STAT Care 06/06/20 22:18 Active CHEST WITH CONTRAST [CT] Stat Exams 06/06/20 22:42 Taken CBC W DIFF Stat Lab 06/06/20 22:45 Completed CMP Stat Lab 06/06/20 22:45 Completed MAGNESIUM Stat Lab 06/06/20 22:45 Completed POCT GLUCOSE Stat Lab 06/06/20 22:38 Completed TROPONIN Q3H Lab 06/06/20 22:45 Completed TROPONIN Q3H Lab 06/07/20 01:10 Completed TROPONIN Q3H Lab 06/07/20 04:30 Ordered TROPONIN Q3H Lab 06/07/20 07:30 Ordered TROPONIN Q3H Lab 06/07/20 10:30 Ordered UA W/RFX UR CULTURE Stat Lab 06/07/20 00:15 Completed Medication Summary Generic Name Dose Route Start Last Admin Trade Name Freq PRN Reason Stop Dose Admin Sodium Chloride 1,000 mls @ 50 mls/hr 06/06/20 22:30 06/06/20 22:27 Sodium Chloride 0.9% 1000 Ml IV 07/06/20 22:29 50 mls/hr .Q20H ANAYA Administration Lab/Rad Data: Laboratory Result Diagrams 06/06/20 22:45 06/06/20 22:45 Laboratory Results 06/07/20 06/07/20 06/06/20 Range/Units 01:10 00:15 22:45 WBC (4.0-10.5) K/mm3 RBC (4.1-5.6) M/mm3 Hgb (12.5-18.0) gm/dl Hct (42-50) % MCV (78-100) fl MCH (26-32) pg MCHC (32-36) g/dl RDW (11.5-14.0) % Plt Count (150-450) K/mm3 MPV (7.5-11.0) fl Gran % (36.0-66.0) % Eos # (Auto) (0-0.5) Absolute Lymphs (auto) (1.0-4.6) Absolute Monos (auto) (0.0-1.3) Lymphocytes % (24.0-44.0) % Monocytes % (0.0-12.0) % Eosinophils % (0.00-5.0) % Basophils % (0.0-0.4) % Absolute Granulocytes (1.4-6.9) Basophils # (0-0.4) Sodium (137-145) mmol/L Potassium (3.5-5.1) mmol/L Chloride (98-107) mmol/L Carbon Dioxide (22-30) mmol/L Anion Gap (5-15) MEQ/L BUN (9-20) mg/dL Creatinine (0.66-1.25) mg/dL Estimated GFR ML/MIN Glucose (74-106) mg/dL POC Glucometer (74 to 106) mg/dL Calcium (8.4-10.2) mg/dL Magnesium (1.6-2.3) mg/dL Total Bilirubin (0.2-1.3) mg/dL AST (17-59) U/L ALT (0-50) U/L Alkaline Phosphatase (38-126) U/L Troponin I < 0.012 < 0.012 (0.000-0.034) ng/mL Serum Total Protein (6.3-8.2) g/dL Albumin (3.5-5.0) g/dL Urine Color YELLOW (YELLOW) Urine Appearance CLEAR (CLEAR) Urine pH 6.0 (5-6) Ur Specific Gibson 1.035 (1.005-1.025) Urine Protein 30 (Negative) Urine Ketones TRACE (NEGATIVE) Urine Blood NEGATIVE (0-5) Papi/ul Urine Nitrite NEGATIVE (NEGATIVE) Urine Bilirubin NEGATIVE (NEGATIVE) Urine Urobilinogen 2 (0-1) mg/dL Ur Leukocyte Esterase NEGATIVE (NEGATIVE) Urine WBC (Auto) NONE (0-5) /HPF Urine RBC (Auto) NONE (0-2) /HPF U Epithel Cells (Auto) NONE (FEW) /HPF Urine Bacteria (Auto) NONE (NEGATIVE) /HPF Urine Culture Reflexed NO (NO) Urine Glucose >=500 (NEGATIVE) mg/dL 06/06/20 06/06/20 06/06/20 Range/Units 22:45 22:45 22:38 WBC 10.0 (4.0-10.5) K/mm3 RBC 5.57 (4.1-5.6) M/mm3 Hgb 16.9 (12.5-18.0) gm/dl Hct 48.9 (42-50) % MCV 87.8 (78-100) fl MCH 30.3 (26-32) pg MCHC 34.6 (32-36) g/dl RDW 13.4 (11.5-14.0) % Plt Count 237 (150-450) K/mm3 MPV 10.0 (7.5-11.0) fl Gran % 47.5 (36.0-66.0) % Eos # (Auto) 0.36 (0-0.5) Absolute Lymphs (auto) 3.68 (1.0-4.6) Absolute Monos (auto) 1.17 (0.0-1.3) Lymphocytes % 36.7 (24.0-44.0) % Monocytes % 11.7 (0.0-12.0) % Eosinophils % 3.6 (0.00-5.0) % Basophils % 0.5 (0.0-0.4) % Absolute Granulocytes 4.78 (1.4-6.9) Basophils # 0.05 (0-0.4) Sodium 133 L (137-145) mmol/L Potassium 4.4 (3.5-5.1) mmol/L Chloride 97 L (98-107) mmol/L Carbon Dioxide 26 (22-30) mmol/L Anion Gap 15.1 H (5-15) MEQ/L BUN 20 (9-20) mg/dL Creatinine 0.83 (0.66-1.25) mg/dL Estimated GFR > 60.0 ML/MIN Glucose 292 H (74-106) mg/dL POC Glucometer 310 H (74 to 106) mg/dL Calcium 9.5 (8.4-10.2) mg/dL Magnesium 2.1 (1.6-2.3) mg/dL Total Bilirubin 0.40 (0.2-1.3) mg/dL AST 19 (17-59) U/L ALT 24 (0-50) U/L Alkaline Phosphatase 94 (38-126) U/L Troponin I (0.000-0.034) ng/mL Serum Total Protein 7.9 (6.3-8.2) g/dL Albumin 4.5 (3.5-5.0) g/dL Urine Color (YELLOW) Urine Appearance (CLEAR) Urine pH (5-6) Ur Specific Gibson (1.005-1.025) Urine Protein (Negative) Urine Ketones (NEGATIVE) Urine Blood (0-5) Papi/ul Urine Nitrite (NEGATIVE) Urine Bilirubin (NEGATIVE) Urine Urobilinogen (0-1) mg/dL Ur Leukocyte Esterase (NEGATIVE) Urine WBC (Auto) (0-5) /HPF Urine RBC (Auto) (0-2) /HPF U Epithel Cells (Auto) (FEW) /HPF Urine Bacteria (Auto) (NEGATIVE) /HPF Urine Culture Reflexed (NO) Urine Glucose (NEGATIVE) mg/dL - Progress Progress: improved Air Movement: good Progress Note: Patient reassessed. He feels well. No chest pain. Patient believes he simply had a panic attack. Patient stated he had a chemical stress test 6 months ago and all was within normal limits. Patient has 2 - troponins here. CTA chest does not show an ascending aortic aneurysm as previously shown. Will discharge patient at this time. He will follow-up with Dr. Kothari his primary care doctor. I suggest patient should have another outpatient cardiac stress test. Patient agrees to follow-up with Dr. Kothari within 48 hours for reevaluation. He voices no other complaints at this time. No indication for further work-up at this time. Heart score history: 0 EK Age:2 Risk factors 2 Initial troponin 0 Total is 3, Low score. There is a 0.9 to 1.7% chance of MACE. 06/07/20 02:01 Blood Culture(s) Obtained: No Antibiotics given: No Counseled pt/family regarding: lab results, diagnosis, need for follow-up, rad results - Departure Departure Disposition: Home Clinical Impression: Renal cyst, left, Lung nodule < 6cm on CT, Proteinuria, Hyperglycemia, Glucosuria, Chest pain Condition: Stable Critical Care Time: No Referrals: VARUN KOTHARI [Primary Care Provider] - Additional Instructions: Discharge/Care Plan VLADISLAV SALINAS was seen on 06/07/20 in the Emergency Room. The patient was counseled regarding Diagnosis,Lab results, Imaging studies, need for follow up and when to return to the Emergency Room. Prescriptions given: Discharge Note I have spoken with the patient and/or caregivers. I have explained the patient's condition, diagnosis and treatment plan based on the information available to me at this time. I have answered the patient's and/or caregiver's questions and addressed any concerns. The patient and/or caregivers have as good understanding of the patient's diagnosis, condition and treatment plan as can be expected at this point. The vital signs have been stable. The patient's condition is stable and appropriate for discharge from the emergency department. The patient will pursue further outpatient evaluation with the primary care physician or other designated or consulting physician as outlined in the discharge instructions. The patient and/or caregivers are agreeable to this plan of care and follow-up instructions have been explained in detail. The patient and/or caregivers have received these instruction. The patient/and or caregivers are aware that any significant change in condition or worsening of symptoms should prompt an immediate return to this or the closest emergency department or call 911. Forms: Work/School Release Form
[2020-06-07 00:30] LABS: Appearance CLEAR (CLEAR); Bilirubin NEGATIVE (NEGATIVE); Blood NEGATIVE Ery/ul (0-5); Glucose >=500 mg/dL (NEGATIVE); Ketones TRACE (NEGATIVE); Leukocyte Esterase NEGATIVE (NEGATIVE); Nitrite NEGATIVE (NEGATIVE); Protein,Urine Dip 30 (Negative); Specific Gravity 1.035 (1.005-1.025); Urobilinogen 2 mg/dL (0-1)
[2020-06-07 02:06] VITALS: O2SAT 96
[2020-06-07 02:08] VITALS: BP 124/72; PULSE 81
--- NOTE | 2020-06-07 09:07 | XRAY ---
Indication: Chest pain. Aneurysm. Multiple contiguous axial images obtained through the chest using 100 cc Isovue 370 contrast and PE protocol. Comparison: Outside CTA chest exam from [facility] dated March 21, 2020. There is good opacification of the pulmonary arteries to include the lobar and segmental branches. No pulmonary embolus. Heart is not enlarged. Aorta is minimally arteriosclerotic without aneurysm/dissection. There remains small mediastinal lymph nodes again largest distal right paratracheal measuring 1.0 x 1.9 cm unchanged. Also stable tiny subcarinal and bilateral hilar calcified nodes. Lungs again demonstrate bilateral dependent atelectasis within before. Stable bilateral upper lobe subpleural cystic changes, right lower lobe calcified granuloma, and 7 mm peripheral left upper lobe noncalcified nodule. New 6 mm peripheral right upper lobe groundglass nodularity (image 41, series 3). No effusion. Bony thorax intact again with mild degenerative changes throughout the spine. Limited upper abdomen again demonstrates mild fatty liver, hepatic/splenic calcified granulomas, and cholecystectomy. Left kidney demonstrates a few cysts, largest 4 cm inferiorly not previously imaged. Impression: 1. Continued negative for pulmonary embolus and aortic aneurysm/dissection. 2. New 6 mm right upper lobe groundglass nodularity. Consider follow-up per Fleischner guidelines. 3. Stable left upper lobe noncalcified nodule probably granulomatous as the remains evidence for old granulomatous disease elsewhere. 3. Incidental fatty liver and left renal cysts. Comment: Preliminary interpretation was made by [facility]. No critical discrepancy.
== END 2020-06-07 02:12 | disposition home or self-care (01) ==
LOC: ED 22:10
DX: N28.1 Cyst of kidney, acquired (principal); R91.1 Solitary pulmonary nodule; R80.9 Proteinuria, unspecified; R73.9 Hyperglycemia, unspecified; R81 Glycosuria; R07.9 Chest pain, unspecified
CPT/HCPCS: 36000; 36415; 71260; 80053; 81001; 82947; 83735; 84484; 85025; 93005; 93041; 94760; 99284

== ENCOUNTER 2021-04-11 16:02 | Observation (INO) | payer BC, OTHER ==
[2021-04-11] MEDS ORDERED: Nitrostat 0.4 MG (ED) SL ONE ×2 (16:28→16:41)
[2021-04-11] MEDS ORDERED: MORPHINE SULFATE 4 MG INJ IV ONE ×2 (16:28→19:48)
[2021-04-11] MEDS ORDERED: BABY ASPIRIN 81 MG CHEW PO ONE (16:28)
[2021-04-11] MEDS ORDERED: Sodium Chloride 0.9% 1000 ML 1,000 ML IV SCH ×2 (16:30→22:15)
[2021-04-11] MEDS ORDERED: Zofran 4 MG/2 ML VIAL ONE ×2 (16:41→19:49)
[2021-04-11] MEDS ORDERED: BABY ASPIRIN 81 MG CHEW ONE (16:41)
[2021-04-11] MEDS ORDERED: SUBLIMAZE 100 MCG/2 ML IV ONE (16:41)
--- NOTE | 2021-04-11 16:41 | ERPHSYRPT ---
<OMID TRAN - Last Filed: 04/11/21 18:56> - History of Present Illness Time Seen by Provider: 04/11/21 16:36 Historian: patient Exam Limitations: no limitations Physician History: Patient is a 55-year-old male who was eating his dinner when he developed chest pains which is substernal and goes to the left side of the neck and the jaw. Some radiation to the shoulder as well. He did not have shortness of breath he did have some nausea he did not vomit he did get sweaty at one point he has no history of any cardiac problems but his risk factors are 100% his family history cholesterol diabetes smoking and hypertension are all positive. He still has some pain at the present time. Timing/Duration: today Activities at Onset: other (Eating dinner) Quality: aching, pressure Location: substernal Chest Pain Radiation: jaw (Left jaw), arm (Left arm and shoulder) Severity of Pain-Max: moderate Severity of Pain-Current: moderate Modifying Factors: Improves With: nothing Associated Symptoms: nausea, hurts to breathe Prior Chest Pain/Cardiac Workup: no prior cardiac workup Nitro Today/Relief: 0.4 mg x 1 Aspirin Treatment Today: 81 mg x 4 Allergies/Adverse Reactions: hydromorphone HCl [From Dilaudid] Adverse Reaction (Verified 04/11/21 16:19) ANXIETY itching Home Medications: Cholecalciferol (Vitamin D3) [Vitamin D] 50,000 unit PO DAILY 04/11/21 [History] Insulin Glargine,Hum.rec.anlog [Basaglar Kwikpen U-100] 50 units SQ DAILY 04/11/21 [History] Losartan/Hydrochlorothiazide [Losartan-Hctz 50-12.5 mg Tab] 1 tab PO DAILY 04/11/21 [History] Metoprolol Tartrate 1 tab PO DAILY 04/11/21 [History] Hx Tetanus, Diphtheria Vaccination/Date Given: Yes Hx Influenza Vaccination/Date Given: No Hx Pneumococcal Vaccination/Date Given: No Travel Risk - Vaccine Status Have you recieved a Covid-19 vaccination: No - Past Medical History Pertinent Past Medical History: Yes Neurological History: No Pertinent History ENT History: No Pertinent History Cardiac History: Hypertension Respiratory History: No Pertinent History Endocrine Medical History: Diabetes Type II, Other Musculoskeletal History: No Pertinent History GI Medical History: Gallbladder Disease, Pancreatitis History: No Pertinent History Psycho-Social History: Anxiety Male Reproductive Disorders: No Pertinent History Other Medical History: bulging disc, aortic aneurysm - Past Surgical History Past Surgical History: Yes Neuro Surgical History: No Pertinent History Cardiac: No Pertinent History Respiratory: No Pertinent History Gastrointestinal: Cholecystectomy Genitourinary: No Pertinent History Musculoskeletal: Orthopedic Surgery Male Surgical History: No Pertinent History Other Surgical History: carpal tunnel L hand - Social History Smoking Status: Current every day smoker How long have you smoked: 40 yrs Exposure to second hand smoke: No Drug Use: none Patient Lives Alone: No - Progress Progress: unchanged Air Movement: good Blood Culture(s) Obtained: No Antibiotics given: No Will see patient in: hospital (observation) - Departure Departure Disposition: Observation Clinical Impression: Chest pain Condition: Fair Critical Care Time: Yes Critical Care Time(excluding separately billable procedures): Critical 30-74 mins (40) Referrals: VARUN KOTHARI MD [Primary Care Provider] - Follow up/PCP as directed Instructions: Chest Pain (DC) <MAXIME CRUZ - Last Filed: 04/11/21 20:03> - Nursing Vital Signs Nursing Vital Signs: Initial Vital Signs Temperature 97.8 F 04/11/21 16:19 Pulse Rate 94 H 04/11/21 16:19 Respiratory Rate 16 04/11/21 16:19 Blood Pressure 124/70 04/11/21 16:19 O2 Sat by Pulse Oximetry 98 04/11/21 16:19 Pain Scale Pain Intensity 5 Ordered Tests: Active Orders 24 hr Category Date Time Status EKG-ER Only STAT Care 04/11/21 16:28 Active IV Insertion STAT Care 04/11/21 16:28 Active CHEST 1 VIEW (PORTABLE) Stat Exams 04/11/21 16:29 Completed AMYLASE Stat Lab 04/11/21 16:30 Completed CBC W DIFF Stat Lab 04/11/21 16:30 Completed CMP Stat Lab 04/11/21 16:30 Completed D-DIMER QUANTITATIVE Stat Lab 04/11/21 16:30 Completed LIPASE Stat Lab 04/11/21 16:30 Completed Lactic Acid Stat Lab 04/11/21 16:28 Completed MAGNESIUM Stat Lab 04/11/21 16:30 Completed NT PRO BNP Stat Lab 04/11/21 16:30 Completed PROTIME WITH INR Stat Lab 04/11/21 16:30 Completed PTT Stat Lab 04/11/21 16:30 Completed TROPONIN Q3H Lab 04/11/21 16:30 Completed TROPONIN Q3H Lab 04/11/21 19:30 Ordered TROPONIN Q3H Lab 04/11/21 22:30 Ordered TROPONIN Q3H Lab 04/12/21 01:30 Ordered TROPONIN Q3H Lab 04/12/21 04:30 Ordered UA W/RFX UR CULTURE Stat Lab 04/11/21 16:29 Ordered Transfer Order Routine Transfer 04/11/21 Ordered Medication Summary Generic Name Dose Route Start Last Admin Trade Name Freq PRN Reason Stop Dose Admin Sodium Chloride 1,000 mls @ 100 mls/hr 04/11/21 16:30 04/11/21 16:43 Sodium Chloride 0.9% 1000 Ml IV 05/11/21 16:29 100 mls/hr .Q10H ANAYA Administration Discontinued Medications Generic Name Dose Route Start Last Admin Trade Name Freq PRN Reason Stop Dose Admin Aspirin 324 mg 04/11/21 16:28 04/11/21 16:38 Aspirin 81 Mg Tab.Chew PO 04/11/21 16:29 324 mg STAT ONE Administration Aspirin Confirm 04/11/21 16:41 Aspirin 81 Mg Tab.Chew Administered 04/11/21 16:42 Dose 324 mg .ROUTE .STK-MED ONE Fentanyl Citrate 50 mcg 04/11/21 16:41 04/11/21 16:48 Fentanyl Citrate 100 Mcg/2 Ml* Vial IV 04/11/21 16:42 50 mcg STAT ONE Administration Fentanyl Citrate Confirm 04/11/21 16:42 Fentanyl Citrate 100 Mcg/2 Ml* Vial Administered 04/11/21 16:43 Dose 100 mcg .ROUTE .STK-MED ONE Morphine Sulfate 4 mg 04/11/21 16:28 Morphine Sulfate 4 Mg/Ml Injection IV 04/11/21 16:29 STAT ONE Morphine Sulfate 4 mg 04/11/21 19:48 04/11/21 19:52 Morphine Sulfate 4 Mg/Ml Injection IV 04/11/21 19:49 4 mg STAT ONE Administration Morphine Sulfate Confirm 04/11/21 19:50 Morphine Sulfate 4 Mg/Ml Injection Administered 04/11/21 19:51 Dose 4 mg .ROUTE .STK-MED ONE Nitroglycerin 0.4 mg 04/11/21 16:28 04/11/21 16:39 Nitroglycerin 0.4 Mg (Ed) 0.4 Mg Tab.Subl SL 04/11/21 16:29 0.4 mg STAT ONE Administration Nitroglycerin Confirm 04/11/21 16:41 Nitroglycerin 0.4 Mg (Ed) 0.4 Mg Tab.Subl Administered 04/11/21 16:42 Dose 0.4 mg SL .STK-MED ONE Ondansetron HCl Confirm 04/11/21 16:41 Ondansetron Hcl 4 Mg/2 Ml Vial Administered 04/11/21 16:42 Dose 4 mg .ROUTE .STK-MED ONE Ondansetron HCl 4 mg 04/11/21 16:47 04/11/21 16:48 Ondansetron Hcl 4 Mg/2 Ml Vial IV 04/11/21 16:48 4 mg STAT ONE Administration Ondansetron HCl 4 mg 04/11/21 19:48 04/11/21 19:51 Ondansetron Hcl 4 Mg/2 Ml Vial IV 04/11/21 19:49 4 mg STAT ONE Administration Ondansetron HCl Confirm 04/11/21 19:49 Ondansetron Hcl 4 Mg/2 Ml Vial Administered 04/11/21 19:50 Dose 4 mg .ROUTE .STK-MED ONE Lab/Rad Data: Laboratory Result Diagrams 04/11/21 16:30 04/11/21 16:30 Laboratory Results 04/11/21 04/11/21 04/11/21 Range/Units 16:30 16:30 16:30 WBC (4.0-10.5) K/mm3 RBC (4.1-5.6) M/mm3 Hgb (12.5-18.0) gm/dl Hct (42-50) % MCV (78-100) fl MCH (26-32) pg MCHC (32-36) g/dl RDW (11.5-14.0) % Plt Count (150-450) K/mm3 MPV (7.5-11.0) fl Gran % (36.0-66.0) % Eos # (Auto) (0-0.5) Absolute Lymphs (auto) (1.0-4.6) Absolute Monos (auto) (0.0-1.3) Lymphocytes % (24.0-44.0) % Monocytes % (0.0-12.0) % Eosinophils % (0.00-5.0) % Basophils % (0.0-0.4) % Absolute Granulocytes (1.4-6.9) Basophils # (0-0.4) PT 11.7 (9.4-12.5) SECONDS INR 0.99 (0.8-3.0) APTT 35.2 (25.1-36.5) SECONDS D-Dimer 476 (215-500) ng/mL Sodium 135 L (137-145) mmol/L Potassium 4.0 (3.5-5.1) mmol/L Chloride 102 (98-107) mmol/L Carbon Dioxide 23 (22-30) mmol/L Anion Gap 14.0 (5-15) MEQ/L BUN 20 (9-20) mg/dL Creatinine 0.78 (0.66-1.25) mg/dL Estimated GFR > 60.0 ML/MIN Glucose 187 H (74-106) mg/dL Lactic Acid (0.4-2.0) Calcium 9.0 (8.4-10.2) mg/dL Magnesium 2.0 (1.6-2.3) mg/dL Total Bilirubin 0.40 (0.2-1.3) mg/dL AST 20 (17-59) U/L ALT 19 (0-50) U/L Alkaline Phosphatase 97 (38-126) U/L Troponin I < 0.012 (0.000-0.034) ng/mL NT-Pro-B Natriuret Pep 29.6 (0-900) pg/mL Serum Total Protein 7.6 (6.3-8.2) g/dL Albumin 4.2 (3.5-5.0) g/dL Amylase 68 (30-110) U/L Lipase 53 (23-300) U/L 04/11/21 04/11/21 Range/Units 16:30 16:28 WBC 8.9 (4.0-10.5) K/mm3 RBC 5.64 H (4.1-5.6) M/mm3 Hgb 16.5 (12.5-18.0) gm/dl Hct 49.2 (42-50) % MCV 87.2 (78-100) fl MCH 29.3 (26-32) pg MCHC 33.5 (32-36) g/dl RDW 13.6 (11.5-14.0) % Plt Count 262 (150-450) K/mm3 MPV 10.1 (7.5-11.0) fl Gran % 62.1 (36.0-66.0) % Eos # (Auto) 0.12 (0-0.5) Absolute Lymphs (auto) 2.42 (1.0-4.6) Absolute Monos (auto) 0.82 (0.0-1.3) Lymphocytes % 27.2 (24.0-44.0) % Monocytes % 9.2 (0.0-12.0) % Eosinophils % 1.3 (0.00-5.0) % Basophils % 0.2 (0.0-0.4) % Absolute Granulocytes 5.51 (1.4-6.9) Basophils # 0.02 (0-0.4) PT (9.4-12.5) SECONDS INR (0.8-3.0) APTT (25.1-36.5) SECONDS D-Dimer (215-500) ng/mL Sodium (137-145) mmol/L Potassium (3.5-5.1) mmol/L Chloride (98-107) mmol/L Carbon Dioxide (22-30) mmol/L Anion Gap (5-15) MEQ/L BUN (9-20) mg/dL Creatinine (0.66-1.25) mg/dL Estimated GFR ML/MIN Glucose (74-106) mg/dL Lactic Acid 1.5 (0.4-2.0) Calcium (8.4-10.2) mg/dL Magnesium (1.6-2.3) mg/dL Total Bilirubin (0.2-1.3) mg/dL AST (17-59) U/L ALT (0-50) U/L Alkaline Phosphatase (38-126) U/L Troponin I (0.000-0.034) ng/mL NT-Pro-B Natriuret Pep (0-900) pg/mL Serum Total Protein (6.3-8.2) g/dL Albumin (3.5-5.0) g/dL Amylase (30-110) U/L Lipase (23-300) U/L - Progress Progress: improved, re-examined Progress Note: 04/11/21 20:02 Patient is checked out to me at shift change from Dr. Tran with pending work- up. Patient presented with left-sided chest pain. Initial troponin and D- dimers are negative. EKG normal sinus rhythm without any acute ST elevations. On my evaluation patient is still complaining of pain after receiving nitro and have given him morphine which did help his pain. Patient has multiple risk factors for CAD, reviewed with Dr. Martines and patient is excepted for admission. Discussed with : Lázaro Counseled pt/family regarding: lab results, diagnosis, rad results, smoking cessation
[2021-04-11] MEDS ORDERED: Sodium Chloride 0.9% 1000 ML 1,000 ML ONE (16:42)
[2021-04-11] MEDS ORDERED: SUBLIMAZE 100 MCG/2 ML ONE (16:42)
[2021-04-11 16:45] LABS: Absolute Neutrophil Ct (ANC) 5.51 (1.4-6.9); Basophil (Absolute #) 0.02 (0-0.4); Eosinophil % 1.3 % (0.00-5.0); Eosinophil (Absolute #) 0.12 (0-0.5); Hematocrit 49.2 % (42-50); Hemoglobin 16.5 gm/dl (12.5-18.0); INR 0.99 (0.8-3.0); Lymphocyte (Absolute #) 2.42 (1.0-4.6); Lymphocytes % 27.2 % (24.0-44.0); Mean Cell Volume 87.2 fl (78-100); Mean Corpuscular Hemoglobin 29.3 pg (26-32); Mean Corpuscular Hgb Concent. 33.5 g/dl (32-36); Mean Platelet Volume 10.1 fl (7.5-11.0); Monocyte (Absolute #) 0.82 (0.0-1.3); Monocytes % 9.2 % (0.0-12.0); Neutrophil % 62.1 % (36.0-66.0); PROTIME 11.7 SECONDS (9.4-12.5); Platelet Count 262 K/mm3 (150-450); Red Blood Count 5.64 M/mm3 (4.1-5.6); Red Cell Distribution Width 13.6 % (11.5-14.0); White Blood Count 8.9 K/mm3 (4.0-10.5)
[2021-04-11] MEDS ORDERED: Zofran 4 MG/2 ML VIAL IV ONE ×2 (16:47→19:48)
[2021-04-11 16:48] LABS: PTT 35.2 SECONDS (25.1-36.5)
[2021-04-11 16:59] LABS: ALBUMIN 4.2 g/dL (3.5-5.0); ALKALINE PHOSPHATASE 97 U/L (38-126); AMYLASE 68 U/L (30-110); BLOOD UREA NITROGEN 20 mg/dL (9-20); CHLORIDE 102 mmol/L (98-107); Carbon Dioxide 23 mmol/L (22-30); Creatinine 1 0.78 mg/dL (0.66-1.25); EST GLOMERULAR FILTRATION RATE > 60.0 ML/MIN; Glucose 187 mg/dL (74-106); LIPASE 53 U/L (23-300); NT PRO BNP 29.6 pg/mL (0-900); SGOT/AST 20 U/L (17-59); SGPT/ALT 19 U/L (0-50); SODIUM 135 mmol/L (137-145); Total Protein 7.6 g/dL (6.3-8.2)
--- NOTE | 2021-04-11 18:44 | XRAY ---
Indication: Chest pain. Comparison: June 02, 2019. Portable chest demonstrates new mild bibasilar patchy airspace disease without consolidation/large effusion. Remaining heart and bony thorax unremarkable.
[2021-04-11] MEDS ORDERED: MORPHINE SULFATE 4 MG INJ ONE (19:50)
[2021-04-11 21:00] LABS: INFLUENZA A NEGATIVE (NEGATIVE); INFLUENZA B NEGATIVE (NEGATIVE); RESPIRATORY SYNCTIAL VIRUS NEGATIVE (Negative); SARS-CoV-2 Xpert Express NEGATIVE (NEGATIVE)
[2021-04-11] MEDS ORDERED: MORPHINE SULFATE 4 MG INJ IV PRN (22:12)
[2021-04-11] MEDS ORDERED: DUONEB 0.5-3 MG/3 ml Neb IH PRN (22:12)
[2021-04-11] MEDS ORDERED: TYLENOL 325 MG PO PRN (22:12)
[2021-04-11] MEDS ORDERED: MORPHINE SULFATE 2 MG INJ IV PRN (22:12)
[2021-04-11] MEDS ORDERED: HUMALOG SQ PRN (22:12)
[2021-04-11] MEDS ORDERED: GI COCKTAIL 45 ML (Maalox/Lidocaine) PO ONE (22:15)
[2021-04-11] MEDS ORDERED: PROTONIX 40 MG IV IV ONE (22:15)
[2021-04-11] MEDS ORDERED: MAALOX ES 30 ML UNIT DOSE ONE (22:19)
[2021-04-11] MEDS ORDERED: XYLOCAINE HCl Viscous ONE (22:19)
[2021-04-12 00:32] LABS: Appearance CLEAR (CLEAR); Bilirubin NEGATIVE (NEGATIVE); Blood NEGATIVE Ery/ul (0-5); Glucose 50 mg/dL (NEGATIVE); Ketones NEGATIVE (NEGATIVE); Leukocyte Esterase NEGATIVE (NEGATIVE); Nitrite NEGATIVE (NEGATIVE); Protein,Urine Dip NEGATIVE (Negative); Specific Gravity 1.016 (1.005-1.025); Urobilinogen NEGATIVE mg/dL (0-1)
[2021-04-12 00:34] LABS: Bacteria NONE SEEN /HPF (NEGATIVE)
[2021-04-12 04:28] LABS: Absolute Neutrophil Ct (ANC) 5.81 (1.4-6.9); Basophil (Absolute #) 0.03 (0-0.4); Eosinophil % 2.2 % (0.00-5.0); Eosinophil (Absolute #) 0.26 (0-0.5); Hematocrit 47.4 % (42-50); Hemoglobin 15.7 gm/dl (12.5-18.0); Lymphocyte (Absolute #) 4.19 (1.0-4.6); Lymphocytes % 35.8 % (24.0-44.0); Mean Cell Volume 89.1 fl (78-100); Mean Corpuscular Hemoglobin 29.5 pg (26-32); Mean Corpuscular Hgb Concent. 33.1 g/dl (32-36); Mean Platelet Volume 9.6 fl (7.5-11.0); Monocyte (Absolute #) 1.42 (0.0-1.3); Monocytes % 12.1 % (0.0-12.0); Neutrophil % 49.6 % (36.0-66.0); Platelet Count 263 K/mm3 (150-450); Red Blood Count 5.32 M/mm3 (4.1-5.6); Red Cell Distribution Width 13.8 % (11.5-14.0); White Blood Count 11.7 K/mm3 (4.0-10.5)
[2021-04-12 04:47] LABS: ALBUMIN 3.6 g/dL (3.5-5.0); ALKALINE PHOSPHATASE 78 U/L (38-126); ANION GAP 11.2 MEQ/L (5-15); BLOOD UREA NITROGEN 18 mg/dL (9-20); CHLORIDE 105 mmol/L (98-107); Calcium 8.7 mg/dL (8.4-10.2); Carbon Dioxide 25 mmol/L (22-30); Creatinine 1 0.82 mg/dL (0.66-1.25); EST GLOMERULAR FILTRATION RATE > 60.0 ML/MIN; Glucose 71 mg/dL (74-106); Potassium 3.9 mmol/L (3.5-5.1); SGOT/AST 20 U/L (17-59); SGPT/ALT 19 U/L (0-50); SODIUM 137 mmol/L (137-145); Total Protein 6.8 g/dL (6.3-8.2)
[2021-04-12 04:50] VITALS: O2SAT 93
[2021-04-12 07:26] VITALS: BP 115/58; PULSE 71
[2021-04-12] MEDS ORDERED: XYLOCAINE 1% HCL 20 ML MDV IJ PRN (09:57)
[2021-04-12] MEDS ORDERED: Rocephin 1000 MG INJ IM ONE (10:00)
[2021-04-12] MEDS ORDERED: PROTONIX 40 MG IV IV SCH (10:00)
[2021-04-12] MEDS ORDERED: Lopressor 25MG Tab PO SCH (10:00)
[2021-04-12] MEDS ORDERED: Cozaar 50 MG PO SCH (10:00)
[2021-04-12] MEDS ORDERED: hydroDIURIL 25 MG PO SCH (10:00)
[2021-04-12] MEDS ORDERED: Lantus Insulin SQ SCH (10:00)
[2021-04-12] MEDS ORDERED: NON-FORMULARY ITEM (Losartan/Hydrochlorothiazide [Losartan-Hctz 50-12.5 Mg Tab] 1 EACH Tab PO SCH (10:00)
[2021-04-12] MEDS ORDERED: NON-FORMULARY ITEM (Insulin Glargine,Hum.Rec.Anlog [Basaglar Kwikpen U-100] 100 UNIT/ML In SQ SCH (10:00)
--- NOTE | 2021-04-12 10:31 | PCM.SSS ---
History of Present Illness - Chief Complaint Chief Complaint: Chest pain rule out ND History of Present Illness: is a 55 year old male pt of Dr. Kothari with DM and HTN who came in through ER [facility] CP to r/o ND. He was havving dinner, had some nausea, then started having pain in his L lower chest. It's contant; was pressure initially, now he can't characterize it. 08/17. Had some jaw and L shoulder pain, although didn't feel like it was radiating. No more N, no diaphoresis; did initially have palpitations that resolved. Pain is worse with stretching and coughint and he thinks it is musculoskeletal. He has had increased cough over the past 3-4 d. Pt does have +FHx CAD. Has had a stress test, he says, within the past [address] Stock in the past. Is a smoker. In ER, EKG and troponins neg. He did have a total of 5 neg troponins. CXR final read with bibasilar airspace disease. Will give pt a shot of rocephin IM and have him start augmentin tomorrow. F/u with Dr. Kothari in 1 week. - Review of Systems Respiratory: Cough Cardiac: Chest Pain, Edema (chronic LE), Palpitations, Other (jaw and shoulder pain) Abdominal/Gastrointestinal: Nausea Musculoskeletal: Other (jaw and shoulder pain) Psychological: Anxiety Hematologic/Lymphatic: No Anemia All Other Systems: Reviewed and Negative Medications & Allergies Home Medications: Home Medication List Cholecalciferol (Vitamin D3) [Vitamin D3] 50,000 unit PO DAILY 04/11/21 [History Confirmed 04/11/21] Insulin Glargine,Hum.rec.anlog [Basaglar Kwikpen U-100] 50 units SQ DAILY 04/11/21 [History Confirmed 04/11/21] Losartan/Hydrochlorothiazide [Losartan-Hctz 50-12.5 mg Tab] 1 tab PO DAILY 04/11/21 [History Confirmed 04/11/21] Metoprolol Tartrate 1 tab PO DAILY 04/11/21 [History Confirmed 04/11/21] Amox Tr/Potass Clav. 875 mg [Augmentin 875-125 Tablet] 875 mg PO BID #12 tablet 04/12/21 [Rx] Lactobacillus Acidophilus [Acidophilus Lactobacilli] 1 each PO BID #14 tab 04/12/21 [Rx] Allergies/Adverse Reactions: Allergies Allergy/AdvReac Type Severity Reaction Status Date / Time hydromorphone HCl AdvReac ANXIETY Verified 04/11/21 16:19 [From Dilaudid] - Past Medical History Past Medical History: Yes Neurological History: No Pertinent History ENT History: No Pertinent History Cardiac History: Hypertension Respiratory History: No Pertinent History Endocrine Medical History: Diabetes Type II, Other Musculoskelatal History: No Pertinent History GI Medical History: Gallbladder Disease, Pancreatitis History: No Pertinent History Pyscho-Social History: Anxiety Male Reproductive Disorders: No Pertinent History Comment: bulging disc, aortic aneurysm - Past Surgical History Past Surgical History: Yes Neuro Surgical History: No Pertinent History Cardiac History: No Pertinent History Respiratory Surgery: No Pertinent History GI Surgical History: Cholecystectomy Genitourinary Surgical Hx: No Pertinent History Musculskeletal Surgical Hx: Orthopedic Surgery Male Surgical History: No Pertinent History Other Surgical History: carpal tunnel L hand - Social History Smoking Status: Current every day smoker How long have you smoked: 40 yrs Exposure to second hand smoke: No Alcohol: None Drug Use: none - Physical Exam Vital Signs: Vital Signs - 24 hr Temp Pulse Resp BP Pulse Ox 04/12/21 07:25 97.7 F 71 20 115/58 93 L 04/12/21 04:00 97.7 F 73 18 120/63 93 L 04/12/21 00:00 97.9 F 74 16 138/63 94 L 04/11/21 22:50 97.8 F 85 16 117/80 96 04/11/21 22:00 85 16 117/80 96 04/11/21 21:00 86 16 107/69 96 04/11/21 19:00 89 18 115/74 94 L 04/11/21 18:37 91 H 22 120/83 97 04/11/21 16:19 97.8 F 94 H 16 124/70 98 General Appearance: no apparent distress, alert Neurologic Exam: oriented x 3, cooperative Eye Exam: eyes nml inspection Ears, Nose, Throat Exam: moist mucous membranes Neck Exam: normal inspection, non-tender, No lymphadenopathy Respiratory Exam: normal breath sounds, lungs clear, No crackles/rales, No rhonchi, No wheezing Cardiovascular Exam: regular rate/rhythm, normal heart sounds, No murmur Gastrointestinal/Abdomen Exam: soft, normal bowel sounds, No tenderness, No distention, No mass, No guarding, No rebound Back Exam: normal inspection, No CVA tenderness, No rash Extremity Exam: normal inspection, tenderness (R dorsum of foot) Skin Exam: normal color, warm, dry, No rash Results - Labs Lab/Micro Results: Lab Results-Last 24 Hours 04/11/21 04/11/21 04/11/21 Range/Units 16:28 16:30 16:30 WBC 8.9 (4.0-10.5) K/mm3 RBC 5.64 H (4.1-5.6) M/mm3 Hgb 16.5 (12.5-18.0) gm/dl Hct 49.2 (42-50) % MCV 87.2 (78-100) fl MCH 29.3 (26-32) pg MCHC 33.5 (32-36) g/dl RDW 13.6 (11.5-14.0) % Plt Count 262 (150-450) K/mm3 MPV 10.1 (7.5-11.0) fl Gran % 62.1 (36.0-66.0) % Eos # (Auto) 0.12 (0-0.5) Absolute Lymphs (auto) 2.42 (1.0-4.6) Absolute Monos (auto) 0.82 (0.0-1.3) Lymphocytes % 27.2 (24.0-44.0) % Monocytes % 9.2 (0.0-12.0) % Eosinophils % 1.3 (0.00-5.0) % Basophils % 0.2 (0.0-0.4) % Absolute Granulocytes 5.51 (1.4-6.9) Basophils # 0.02 (0-0.4) PT (9.4-12.5) SECONDS INR (0.8-3.0) APTT (25.1-36.5) SECONDS D-Dimer (215-500) ng/mL Sodium 135 L (137-145) mmol/L Potassium 4.0 (3.5-5.1) mmol/L Chloride 102 (98-107) mmol/L Carbon Dioxide 23 (22-30) mmol/L Anion Gap 14.0 (5-15) MEQ/L BUN 20 (9-20) mg/dL Creatinine 0.78 (0.66-1.25) mg/dL Estimated GFR > 60.0 ML/MIN Glucose 187 H (74-106) mg/dL POC Glucometer (74 to 106) mg/dL Lactic Acid 1.5 (0.4-2.0) Calcium 9.0 (8.4-10.2) mg/dL Magnesium 2.0 (1.6-2.3) mg/dL Total Bilirubin 0.40 (0.2-1.3) mg/dL AST 20 (17-59) U/L ALT 19 (0-50) U/L Alkaline Phosphatase 97 (38-126) U/L Troponin I (0.000-0.034) ng/mL NT-Pro-B Natriuret Pep 29.6 (0-900) pg/mL Serum Total Protein 7.6 (6.3-8.2) g/dL Albumin 4.2 (3.5-5.0) g/dL Amylase 68 (30-110) U/L Lipase 53 (23-300) U/L Urine Color (YELLOW) Urine Appearance (CLEAR) Urine pH (5-6) Ur Specific Thayer (1.005-1.025) Urine Protein (Negative) Urine Ketones (NEGATIVE) Urine Blood (0-5) Papi/ul Urine Nitrite (NEGATIVE) Urine Bilirubin (NEGATIVE) Urine Urobilinogen (0-1) mg/dL Ur Leukocyte Esterase (NEGATIVE) Urine WBC (Auto) (0-5) /HPF Urine RBC (Auto) (0-2) /HPF U Epithel Cells (Auto) (FEW) /HPF Urine Bacteria (Auto) (NEGATIVE) /HPF Urine Culture Reflexed (NO) Urine Glucose (NEGATIVE) mg/dL Influenza Type A Ag (NEGATIVE) Influenza Type B Ag (NEGATIVE) RSV (PCR) (Negative) SARS-CoV-2 (PCR) (NEGATIVE) 04/11/21 04/11/21 04/11/21 Range/Units 16:30 16:30 19:30 WBC (4.0-10.5) K/mm3 RBC (4.1-5.6) M/mm3 Hgb (12.5-18.0) gm/dl Hct (42-50) % MCV (78-100) fl MCH (26-32) pg MCHC (32-36) g/dl RDW (11.5-14.0) % Plt Count (150-450) K/mm3 MPV (7.5-11.0) fl Gran % (36.0-66.0) % Eos # (Auto) (0-0.5) Absolute Lymphs (auto) (1.0-4.6) Absolute Monos (auto) (0.0-1.3) Lymphocytes % (24.0-44.0) % Monocytes % (0.0-12.0) % Eosinophils % (0.00-5.0) % Basophils % (0.0-0.4) % Absolute Granulocytes (1.4-6.9) Basophils # (0-0.4) PT 11.7 (9.4-12.5) SECONDS INR 0.99 (0.8-3.0) APTT 35.2 (25.1-36.5) SECONDS D-Dimer 476 (215-500) ng/mL Sodium (137-145) mmol/L Potassium (3.5-5.1) mmol/L Chloride (98-107) mmol/L Carbon Dioxide (22-30) mmol/L Anion Gap (5-15) MEQ/L BUN (9-20) mg/dL Creatinine (0.66-1.25) mg/dL Estimated GFR ML/MIN Glucose (74-106) mg/dL POC Glucometer (74 to 106) mg/dL Lactic Acid (0.4-2.0) Calcium (8.4-10.2) mg/dL Magnesium (1.6-2.3) mg/dL Total Bilirubin (0.2-1.3) mg/dL AST (17-59) U/L ALT (0-50) U/L Alkaline Phosphatase (38-126) U/L Troponin I < 0.012 < 0.012 (0.000-0.034) ng/mL NT-Pro-B Natriuret Pep (0-900) pg/mL Serum Total Protein (6.3-8.2) g/dL Albumin (3.5-5.0) g/dL Amylase (30-110) U/L Lipase (23-300) U/L Urine Color (YELLOW) Urine Appearance (CLEAR) Urine pH (5-6) Ur Specific Thayer (1.005-1.025) Urine Protein (Negative) Urine Ketones (NEGATIVE) Urine Blood (0-5) Papi/ul Urine Nitrite (NEGATIVE) Urine Bilirubin (NEGATIVE) Urine Urobilinogen (0-1) mg/dL Ur Leukocyte Esterase (NEGATIVE) Urine WBC (Auto) (0-5) /HPF Urine RBC (Auto) (0-2) /HPF U Epithel Cells (Auto) (FEW) /HPF Urine Bacteria (Auto) (NEGATIVE) /HPF Urine Culture Reflexed (NO) Urine Glucose (NEGATIVE) mg/dL Influenza Type A Ag (NEGATIVE) Influenza Type B Ag (NEGATIVE) RSV (PCR) (Negative) SARS-CoV-2 (PCR) (NEGATIVE) 04/11/21 04/11/21 04/11/21 Range/Units 19:54 22:05 22:28 WBC (4.0-10.5) K/mm3 RBC (4.1-5.6) M/mm3 Hgb (12.5-18.0) gm/dl Hct (42-50) % MCV (78-100) fl MCH (26-32) pg MCHC (32-36) g/dl RDW (11.5-14.0) % Plt Count (150-450) K/mm3 MPV (7.5-11.0) fl Gran % (36.0-66.0) % Eos # (Auto) (0-0.5) Absolute Lymphs (auto) (1.0-4.6) Absolute Monos (auto) (0.0-1.3) Lymphocytes % (24.0-44.0) % Monocytes % (0.0-12.0) % Eosinophils % (0.00-5.0) % Basophils % (0.0-0.4) % Absolute Granulocytes (1.4-6.9) Basophils # (0-0.4) PT (9.4-12.5) SECONDS INR (0.8-3.0) APTT (25.1-36.5) SECONDS D-Dimer (215-500) ng/mL Sodium (137-145) mmol/L Potassium (3.5-5.1) mmol/L Chloride (98-107) mmol/L Carbon Dioxide (22-30) mmol/L Anion Gap (5-15) MEQ/L BUN (9-20) mg/dL Creatinine (0.66-1.25) mg/dL Estimated GFR ML/MIN Glucose (74-106) mg/dL POC Glucometer (74 to 106) mg/dL Lactic Acid (0.4-2.0) Calcium (8.4-10.2) mg/dL Magnesium (1.6-2.3) mg/dL Total Bilirubin (0.2-1.3) mg/dL AST (17-59) U/L ALT (0-50) U/L Alkaline Phosphatase (38-126) U/L Troponin I < 0.012 (0.000-0.034) ng/mL NT-Pro-B Natriuret Pep (0-900) pg/mL Serum Total Protein (6.3-8.2) g/dL Albumin (3.5-5.0) g/dL Amylase (30-110) U/L Lipase (23-300) U/L Urine Color YELLOW (YELLOW) Urine Appearance CLEAR (CLEAR) Urine pH 6.0 (5-6) Ur Specific Thayer 1.016 (1.005-1.025) Urine Protein NEGATIVE (Negative) Urine Ketones NEGATIVE (NEGATIVE) Urine Blood NEGATIVE (0-5) Papi/ul Urine Nitrite NEGATIVE (NEGATIVE) Urine Bilirubin NEGATIVE (NEGATIVE) Urine Urobilinogen NEGATIVE (0-1) mg/dL Ur Leukocyte Esterase NEGATIVE (NEGATIVE) Urine WBC (Auto) NONE (0-5) /HPF Urine RBC (Auto) NONE (0-2) /HPF U Epithel Cells (Auto) NONE (FEW) /HPF Urine Bacteria (Auto) NONE SEEN (NEGATIVE) /HPF Urine Culture Reflexed NO (NO) Urine Glucose 50 (NEGATIVE) mg/dL Influenza Type A Ag NEGATIVE (NEGATIVE) Influenza Type B Ag NEGATIVE (NEGATIVE) RSV (PCR) NEGATIVE (Negative) SARS-CoV-2 (PCR) NEGATIVE (NEGATIVE) 04/12/21 04/12/21 04/12/21 Range/Units 01:20 04:24 04:24 WBC 11.7 H (4.0-10.5) K/mm3 RBC 5.32 (4.1-5.6) M/mm3 Hgb 15.7 (12.5-18.0) gm/dl Hct 47.4 (42-50) % MCV 89.1 (78-100) fl MCH 29.5 (26-32) pg MCHC 33.1 (32-36) g/dl RDW 13.8 (11.5-14.0) % Plt Count 263 (150-450) K/mm3 MPV 9.6 (7.5-11.0) fl Gran % 49.6 (36.0-66.0) % Eos # (Auto) 0.26 (0-0.5) Absolute Lymphs (auto) 4.19 (1.0-4.6) Absolute Monos (auto) 1.42 H (0.0-1.3) Lymphocytes % 35.8 (24.0-44.0) % Monocytes % 12.1 H (0.0-12.0) % Eosinophils % 2.2 (0.00-5.0) % Basophils % 0.3 (0.0-0.4) % Absolute Granulocytes 5.81 (1.4-6.9) Basophils # 0.03 (0-0.4) PT (9.4-12.5) SECONDS INR (0.8-3.0) APTT (25.1-36.5) SECONDS D-Dimer (215-500) ng/mL Sodium (137-145) mmol/L Potassium (3.5-5.1) mmol/L Chloride (98-107) mmol/L Carbon Dioxide (22-30) mmol/L Anion Gap (5-15) MEQ/L BUN (9-20) mg/dL Creatinine (0.66-1.25) mg/dL Estimated GFR ML/MIN Glucose (74-106) mg/dL POC Glucometer (74 to 106) mg/dL Lactic Acid (0.4-2.0) Calcium (8.4-10.2) mg/dL Magnesium (1.6-2.3) mg/dL Total Bilirubin (0.2-1.3) mg/dL AST (17-59) U/L ALT (0-50) U/L Alkaline Phosphatase (38-126) U/L Troponin I < 0.012 < 0.012 (0.000-0.034) ng/mL NT-Pro-B Natriuret Pep (0-900) pg/mL Serum Total Protein (6.3-8.2) g/dL Albumin (3.5-5.0) g/dL Amylase (30-110) U/L Lipase (23-300) U/L Urine Color (YELLOW) Urine Appearance (CLEAR) Urine pH (5-6) Ur Specific Thayer (1.005-1.025) Urine Protein (Negative) Urine Ketones (NEGATIVE) Urine Blood (0-5) Papi/ul Urine Nitrite (NEGATIVE) Urine Bilirubin (NEGATIVE) Urine Urobilinogen (0-1) mg/dL Ur Leukocyte Esterase (NEGATIVE) Urine WBC (Auto) (0-5) /HPF Urine RBC (Auto) (0-2) /HPF U Epithel Cells (Auto) (FEW) /HPF Urine Bacteria (Auto) (NEGATIVE) /HPF Urine Culture Reflexed (NO) Urine Glucose (NEGATIVE) mg/dL Influenza Type A Ag (NEGATIVE) Influenza Type B Ag (NEGATIVE) RSV (PCR) (Negative) SARS-CoV-2 (PCR) (NEGATIVE) 04/12/21 04/12/21 Range/Units 04:24 07:00 WBC (4.0-10.5) K/mm3 RBC (4.1-5.6) M/mm3 Hgb (12.5-18.0) gm/dl Hct (42-50) % MCV (78-100) fl MCH (26-32) pg MCHC (32-36) g/dl RDW (11.5-14.0) % Plt Count (150-450) K/mm3 MPV (7.5-11.0) fl Gran % (36.0-66.0) % Eos # (Auto) (0-0.5) Absolute Lymphs (auto) (1.0-4.6) Absolute Monos (auto) (0.0-1.3) Lymphocytes % (24.0-44.0) % Monocytes % (0.0-12.0) % Eosinophils % (0.00-5.0) % Basophils % (0.0-0.4) % Absolute Granulocytes (1.4-6.9) Basophils # (0-0.4) PT (9.4-12.5) SECONDS INR (0.8-3.0) APTT (25.1-36.5) SECONDS D-Dimer (215-500) ng/mL Sodium 137 (137-145) mmol/L Potassium 3.9 (3.5-5.1) mmol/L Chloride 105 (98-107) mmol/L Carbon Dioxide 25 (22-30) mmol/L Anion Gap 11.2 (5-15) MEQ/L BUN 18 (9-20) mg/dL Creatinine 0.82 (0.66-1.25) mg/dL Estimated GFR > 60.0 ML/MIN Glucose 71 L (74-106) mg/dL POC Glucometer 117 H (74 to 106) mg/dL Lactic Acid (0.4-2.0) Calcium 8.7 (8.4-10.2) mg/dL Magnesium (1.6-2.3) mg/dL Total Bilirubin 0.50 (0.2-1.3) mg/dL AST 20 (17-59) U/L ALT 19 (0-50) U/L Alkaline Phosphatase 78 (38-126) U/L Troponin I (0.000-0.034) ng/mL NT-Pro-B Natriuret Pep (0-900) pg/mL Serum Total Protein 6.8 (6.3-8.2) g/dL Albumin 3.6 (3.5-5.0) g/dL Amylase (30-110) U/L Lipase (23-300) U/L Urine Color (YELLOW) Urine Appearance (CLEAR) Urine pH (5-6) Ur Specific Thayer (1.005-1.025) Urine Protein (Negative) Urine Ketones (NEGATIVE) Urine Blood (0-5) Papi/ul Urine Nitrite (NEGATIVE) Urine Bilirubin (NEGATIVE) Urine Urobilinogen (0-1) mg/dL Ur Leukocyte Esterase (NEGATIVE) Urine WBC (Auto) (0-5) /HPF Urine RBC (Auto) (0-2) /HPF U Epithel Cells (Auto) (FEW) /HPF Urine Bacteria (Auto) (NEGATIVE) /HPF Urine Culture Reflexed (NO) Urine Glucose (NEGATIVE) mg/dL Influenza Type A Ag (NEGATIVE) Influenza Type B Ag (NEGATIVE) RSV (PCR) (Negative) SARS-CoV-2 (PCR) (NEGATIVE) Accuchecks Date 04/12/21 Time 07:00 - Radiology Impressions Radiology Exams & Impressions: Radiology Procedures Category Date Time Status CHEST 1 VIEW (PORTABLE) Stat Exams 04/11/21 16:29 Completed Assessment/Plan (1) Chest pain Current Visit: Yes Status: Acute Qualifiers: Chest pain type: other chest pain Qualified Code(s): R07.89 - Other chest pain; R07.8 - Other chest pain Assessment & Plan: Pain is persistent but he has ruled out for ND. Could be musculoskeletal, since it is worse with certain movements. Could also be related to lung dz, as it is worse with coughing. Code(s): R07.9 - CHEST PAIN, UNSPECIFIED (2) COPD exacerbation Current Visit: Yes Status: Acute Assessment & Plan: rocephin1 g IM here, then home on augmentin and lactobacillus. Code(s): J44.1 - CHRONIC OBSTRUCTIVE PULMONARY DISEASE W (ACUTE) EXACERBATION (3) Diabetes mellitus type 2, uncontrolled Current Visit: No Status: Chronic Qualifiers: Glycemic state: with hyperglycemia Qualified Code(s): E11.65 - Type 2 diabe laura mellitus with hyperglycemia Code(s): E11.65 - TYPE 2 DIABETES MELLITUS WITH HYPERGLYCEMIA (4) Essential hypertension Current Visit: No Status: Chronic Code(s): I10 - ESSENTIAL (PRIMARY) HYPERTENSION (5) Tobacco abuse Current Visit: No Status: Chronic Code(s): Z72.0 - TOBACCO USE Hospital Summary - Hospital Course Hospital Course: Pt is 55 yo male, in ER for CP, ND ruled out with nonacute EKG and neg troponins x 5. He was told to quit smoking but states he isn't going to do that. Home on antibiotics for possible bilateral early pneumonia/copd exacerbation. F/u with Dr. Kothari in 1 week. - Vitals & Intake/Output Vital Signs: Vital Signs Temperature 97.7 F 04/12/21 07:25 Pulse Rate 71 04/12/21 07:25 Respiratory Rate 20 04/12/21 07:25 Blood Pressure 115/58 04/12/21 07:25 O2 Sat by Pulse Oximetry 93 L 04/12/21 07:25 Intake & Output: Intake & Output 04/09/21 04/10/21 04/11/21 04/12/21 11:59 11:59 11:59 11:59 Intake Total 1650 Balance 1650 Weight 97.7 kg - Lab Result Diagrams: 04/12/21 04:24 04/12/21 04:24 Lab Results-Last 24 Hrs: Lab Results-Last 24 Hours 04/11/21 04/11/21 04/11/21 Range/Units 16:28 16:30 16:30 WBC 8.9 (4.0-10.5) K/mm3 RBC 5.64 H (4.1-5.6) M/mm3 Hgb 16.5 (12.5-18.0) gm/dl Hct 49.2 (42-50) % MCV 87.2 (78-100) fl MCH 29.3 (26-32) pg MCHC 33.5 (32-36) g/dl RDW 13.6 (11.5-14.0) % Plt Count 262 (150-450) K/mm3 MPV 10.1 (7.5-11.0) fl Gran % 62.1 (36.0-66.0) % Eos # (Auto) 0.12 (0-0.5) Absolute Lymphs (auto) 2.42 (1.0-4.6) Absolute Monos (auto) 0.82 (0.0-1.3) Lymphocytes % 27.2 (24.0-44.0) % Monocytes % 9.2 (0.0-12.0) % Eosinophils % 1.3 (0.00-5.0) % Basophils % 0.2 (0.0-0.4) % Absolute Granulocytes 5.51 (1.4-6.9) Basophils # 0.02 (0-0.4) PT (9.4-12.5) SECONDS INR (0.8-3.0) APTT (25.1-36.5) SECONDS D-Dimer (215-500) ng/mL Sodium 135 L (137-145) mmol/L Potassium 4.0 (3.5-5.1) mmol/L Chloride 102 (98-107) mmol/L Carbon Dioxide 23 (22-30) mmol/L Anion Gap 14.0 (5-15) MEQ/L BUN 20 (9-20) mg/dL Creatinine 0.78 (0.66-1.25) mg/dL Estimated GFR > 60.0 ML/MIN Glucose 187 H (74-106) mg/dL POC Glucometer (74 to 106) mg/dL Lactic Acid 1.5 (0.4-2.0) Calcium 9.0 (8.4-10.2) mg/dL Magnesium 2.0 (1.6-2.3) mg/dL Total Bilirubin 0.40 (0.2-1.3) mg/dL AST 20 (17-59) U/L ALT 19 (0-50) U/L Alkaline Phosphatase 97 (38-126) U/L Troponin I (0.000-0.034) ng/mL NT-Pro-B Natriuret Pep 29.6 (0-900) pg/mL Serum Total Protein 7.6 (6.3-8.2) g/dL Albumin 4.2 (3.5-5.0) g/dL Amylase 68 (30-110) U/L Lipase 53 (23-300) U/L Urine Color (YELLOW) Urine Appearance (CLEAR) Urine pH (5-6) Ur Specific Thayer (1.005-1.025) Urine Protein (Negative) Urine Ketones (NEGATIVE) Urine Blood (0-5) Papi/ul Urine Nitrite (NEGATIVE) Urine Bilirubin (NEGATIVE) Urine Urobilinogen (0-1) mg/dL Ur Leukocyte Esterase (NEGATIVE) Urine WBC (Auto) (0-5) /HPF Urine RBC (Auto) (0-2) /HPF U Epithel Cells (Auto) (FEW) /HPF Urine Bacteria (Auto) (NEGATIVE) /HPF Urine Culture Reflexed (NO) Urine Glucose (NEGATIVE) mg/dL Influenza Type A Ag (NEGATIVE) Influenza Type B Ag (NEGATIVE) RSV (PCR) (Negative) SARS-CoV-2 (PCR) (NEGATIVE) 04/11/21 04/11/21 04/11/21 Range/Units 16:30 16:30 19:30 WBC (4.0-10.5) K/mm3 RBC (4.1-5.6) M/mm3 Hgb (12.5-18.0) gm/dl Hct (42-50) % MCV (78-100) fl MCH (26-32) pg MCHC (32-36) g/dl RDW (11.5-14.0) % Plt Count (150-450) K/mm3 MPV (7.5-11.0) fl Gran % (36.0-66.0) % Eos # (Auto) (0-0.5) Absolute Lymphs (auto) (1.0-4.6) Absolute Monos (auto) (0.0-1.3) Lymphocytes % (24.0-44.0) % Monocytes % (0.0-12.0) % Eosinophils % (0.00-5.0) % Basophils % (0.0-0.4) % Absolute Granulocytes (1.4-6.9) Basophils # (0-0.4) PT 11.7 (9.4-12.5) SECONDS INR 0.99 (0.8-3.0) APTT 35.2 (25.1-36.5) SECONDS D-Dimer 476 (215-500) ng/mL Sodium (137-145) mmol/L Potassium (3.5-5.1) mmol/L Chloride (98-107) mmol/L Carbon Dioxide (22-30) mmol/L Anion Gap (5-15) MEQ/L BUN (9-20) mg/dL Creatinine (0.66-1.25) mg/dL Estimated GFR ML/MIN Glucose (74-106) mg/dL POC Glucometer (74 to 106) mg/dL Lactic Acid (0.4-2.0) Calcium (8.4-10.2) mg/dL Magnesium (1.6-2.3) mg/dL Total Bilirubin (0.2-1.3) mg/dL AST (17-59) U/L ALT (0-50) U/L Alkaline Phosphatase (38-126) U/L Troponin I < 0.012 < 0.012 (0.000-0.034) ng/mL NT-Pro-B Natriuret Pep (0-900) pg/mL Serum Total Protein (6.3-8.2) g/dL Albumin (3.5-5.0) g/dL Amylase (30-110) U/L Lipase (23-300) U/L Urine Color (YELLOW) Urine Appearance (CLEAR) Urine pH (5-6) Ur Specific Thayer (1.005-1.025) Urine Protein (Negative) Urine Ketones (NEGATIVE) Urine Blood (0-5) Papi/ul Urine Nitrite (NEGATIVE) Urine Bilirubin (NEGATIVE) Urine Urobilinogen (0-1) mg/dL Ur Leukocyte Esterase (NEGATIVE) Urine WBC (Auto) (0-5) /HPF Urine RBC (Auto) (0-2) /HPF U Epithel Cells (Auto) (FEW) /HPF Urine Bacteria (Auto) (NEGATIVE) /HPF Urine Culture Reflexed (NO) Urine Glucose (NEGATIVE) mg/dL Influenza Type A Ag (NEGATIVE) Influenza Type B Ag (NEGATIVE) RSV (PCR) (Negative) SARS-CoV-2 (PCR) (NEGATIVE) 04/11/21 04/11/21 04/11/21 Range/Units 19:54 22:05 22:28 WBC (4.0-10.5) K/mm3 RBC (4.1-5.6) M/mm3 Hgb (12.5-18.0) gm/dl Hct (42-50) % MCV (78-100) fl MCH (26-32) pg MCHC (32-36) g/dl RDW (11.5-14.0) % Plt Count (150-450) K/mm3 MPV (7.5-11.0) fl Gran % (36.0-66.0) % Eos # (Auto) (0-0.5) Absolute Lymphs (auto) (1.0-4.6) Absolute Monos (auto) (0.0-1.3) Lymphocytes % (24.0-44.0) % Monocytes % (0.0-12.0) % Eosinophils % (0.00-5.0) % Basophils % (0.0-0.4) % Absolute Granulocytes (1.4-6.9) Basophils # (0-0.4) PT (9.4-12.5) SECONDS INR (0.8-3.0) APTT (25.1-36.5) SECONDS D-Dimer (215-500) ng/mL Sodium (137-145) mmol/L Potassium (3.5-5.1) mmol/L Chloride (98-107) mmol/L Carbon Dioxide (22-30) mmol/L Anion Gap (5-15) MEQ/L BUN (9-20) mg/dL Creatinine (0.66-1.25) mg/dL Estimated GFR ML/MIN Glucose (74-106) mg/dL POC Glucometer (74 to 106) mg/dL Lactic Acid (0.4-2.0) Calcium (8.4-10.2) mg/dL Magnesium (1.6-2.3) mg/dL Total Bilirubin (0.2-1.3) mg/dL AST (17-59) U/L ALT (0-50) U/L Alkaline Phosphatase (38-126) U/L Troponin I < 0.012 (0.000-0.034) ng/mL NT-Pro-B Natriuret Pep (0-900) pg/mL Serum Total Protein (6.3-8.2) g/dL Albumin (3.5-5.0) g/dL Amylase (30-110) U/L Lipase (23-300) U/L Urine Color YELLOW (YELLOW) Urine Appearance CLEAR (CLEAR) Urine pH 6.0 (5-6) Ur Specific Thayer 1.016 (1.005-1.025) Urine Protein NEGATIVE (Negative) Urine Ketones NEGATIVE (NEGATIVE) Urine Blood NEGATIVE (0-5) Papi/ul Urine Nitrite NEGATIVE (NEGATIVE) Urine Bilirubin NEGATIVE (NEGATIVE) Urine Urobilinogen NEGATIVE (0-1) mg/dL Ur Leukocyte Esterase NEGATIVE (NEGATIVE) Urine WBC (Auto) NONE (0-5) /HPF Urine RBC (Auto) NONE (0-2) /HPF U Epithel Cells (Auto) NONE (FEW) /HPF Urine Bacteria (Auto) NONE SEEN (NEGATIVE) /HPF Urine Culture Reflexed NO (NO) Urine Glucose 50 (NEGATIVE) mg/dL Influenza Type A Ag NEGATIVE (NEGATIVE) Influenza Type B Ag NEGATIVE (NEGATIVE) RSV (PCR) NEGATIVE (Negative) SARS-CoV-2 (PCR) NEGATIVE (NEGATIVE) 04/12/21 04/12/21 04/12/21 Range/Units 01:20 04:24 04:24 WBC 11.7 H (4.0-10.5) K/mm3 RBC 5.32 (4.1-5.6) M/mm3 Hgb 15.7 (12.5-18.0) gm/dl Hct 47.4 (42-50) % MCV 89.1 (78-100) fl MCH 29.5 (26-32) pg MCHC 33.1 (32-36) g/dl RDW 13.8 (11.5-14.0) % Plt Count 263 (150-450) K/mm3 MPV 9.6 (7.5-11.0) fl Gran % 49.6 (36.0-66.0) % Eos # (Auto) 0.26 (0-0.5) Absolute Lymphs (auto) 4.19 (1.0-4.6) Absolute Monos (auto) 1.42 H (0.0-1.3) Lymphocytes % 35.8 (24.0-44.0) % Monocytes % 12.1 H (0.0-12.0) % Eosinophils % 2.2 (0.00-5.0) % Basophils % 0.3 (0.0-0.4) % Absolute Granulocytes 5.81 (1.4-6.9) Basophils # 0.03 (0-0.4) PT (9.4-12.5) SECONDS INR (0.8-3.0) APTT (25.1-36.5) SECONDS D-Dimer (215-500) ng/mL Sodium (137-145) mmol/L Potassium (3.5-5.1) mmol/L Chloride (98-107) mmol/L Carbon Dioxide (22-30) mmol/L Anion Gap (5-15) MEQ/L BUN (9-20) mg/dL Creatinine (0.66-1.25) mg/dL Estimated GFR ML/MIN Glucose (74-106) mg/dL POC Glucometer (74 to 106) mg/dL Lactic Acid (0.4-2.0) Calcium (8.4-10.2) mg/dL Magnesium (1.6-2.3) mg/dL Total Bilirubin (0.2-1.3) mg/dL AST (17-59) U/L ALT (0-50) U/L Alkaline Phosphatase (38-126) U/L Troponin I < 0.012 < 0.012 (0.000-0.034) ng/mL NT-Pro-B Natriuret Pep (0-900) pg/mL Serum Total Protein (6.3-8.2) g/dL Albumin (3.5-5.0) g/dL Amylase (30-110) U/L Lipase (23-300) U/L Urine Color (YELLOW) Urine Appearance (CLEAR) Urine pH (5-6) Ur Specific Thayer (1.005-1.025) Urine Protein (Negative) Urine Ketones (NEGATIVE) Urine Blood (0-5) Papi/ul Urine Nitrite (NEGATIVE) Urine Bilirubin (NEGATIVE) Urine Urobilinogen (0-1) mg/dL Ur Leukocyte Esterase (NEGATIVE) Urine WBC (Auto) (0-5) /HPF Urine RBC (Auto) (0-2) /HPF U Epithel Cells (Auto) (FEW) /HPF Urine Bacteria (Auto) (NEGATIVE) /HPF Urine Culture Reflexed (NO) Urine Glucose (NEGATIVE) mg/dL Influenza Type A Ag (NEGATIVE) Influenza Type B Ag (NEGATIVE) RSV (PCR) (Negative) SARS-CoV-2 (PCR) (NEGATIVE) 04/12/21 04/12/21 Range/Units 04:24 07:00 WBC (4.0-10.5) K/mm3 RBC (4.1-5.6) M/mm3 Hgb (12.5-18.0) gm/dl Hct (42-50) % MCV (78-100) fl MCH (26-32) pg MCHC (32-36) g/dl RDW (11.5-14.0) % Plt Count (150-450) K/mm3 MPV (7.5-11.0) fl Gran % (36.0-66.0) % Eos # (Auto) (0-0.5) Absolute Lymphs (auto) (1.0-4.6) Absolute Monos (auto) (0.0-1.3) Lymphocytes % (24.0-44.0) % Monocytes % (0.0-12.0) % Eosinophils % (0.00-5.0) % Basophils % (0.0-0.4) % Absolute Granulocytes (1.4-6.9) Basophils # (0-0.4) PT (9.4-12.5) SECONDS INR (0.8-3.0) APTT (25.1-36.5) SECONDS D-Dimer (215-500) ng/mL Sodium 137 (137-145) mmol/L Potassium 3.9 (3.5-5.1) mmol/L Chloride 105 (98-107) mmol/L Carbon Dioxide 25 (22-30) mmol/L Anion Gap 11.2 (5-15) MEQ/L BUN 18 (9-20) mg/dL Creatinine 0.82 (0.66-1.25) mg/dL Estimated GFR > 60.0 ML/MIN Glucose 71 L (74-106) mg/dL POC Glucometer 117 H (74 to 106) mg/dL Lactic Acid (0.4-2.0) Calcium 8.7 (8.4-10.2) mg/dL Magnesium (1.6-2.3) mg/dL Total Bilirubin 0.50 (0.2-1.3) mg/dL AST 20 (17-59) U/L ALT 19 (0-50) U/L Alkaline Phosphatase 78 (38-126) U/L Troponin I (0.000-0.034) ng/mL NT-Pro-B Natriuret Pep (0-900) pg/mL Serum Total Protein 6.8 (6.3-8.2) g/dL Albumin 3.6 (3.5-5.0) g/dL Amylase (30-110) U/L Lipase (23-300) U/L Urine Color (YELLOW) Urine Appearance (CLEAR) Urine pH (5-6) Ur Specific [place] (1.005-1.025) Urine Protein (Negative) Urine Ketones (NEGATIVE) Urine Blood (0-5) Papi/ul Urine Nitrite (NEGATIVE) Urine Bilirubin (NEGATIVE) Urine Urobilinogen (0-1) mg/dL Ur Leukocyte Esterase (NEGATIVE) Urine WBC (Auto) (0-5) /HPF Urine RBC (Auto) (0-2) /HPF U Epithel Cells (Auto) (FEW) /HPF Urine Bacteria (Auto) (NEGATIVE) /HPF Urine Culture Reflexed (NO) Urine Glucose (NEGATIVE) mg/dL Influenza Type A Ag (NEGATIVE) Influenza Type B Ag (NEGATIVE) RSV (PCR) (Negative) SARS-CoV-2 (PCR) (NEGATIVE) Micro Results-Entire Visit: Accuchecks Date 04/12/21 Time 07:00 - Radiology Exams Ordered Rad Exams-Entire Visit: Radiology Procedures Category Date Time Status CHEST 1 VIEW (PORTABLE) Stat Exams 04/11/21 16:29 Completed - Discharge Disposition: Home, Self-Care Condition: Good Prescriptions: New Lactobacillus Acidophilus [Acidophilus Lactobacilli] 1 each PO BID #14 tab Amox Tr/Potass Clav. 875 mg [Augmentin 875-125 Tablet] 875 mg PO BID #12 tablet Continue Cholecalciferol (Vitamin D3) [Vitamin D3] 50,000 unit PO DAILY Metoprolol Tartrate 1 tab PO DAILY Losartan/Hydrochlorothiazide [Losartan-Hctz 50-12.5 mg Tab] 1 tab PO DAILY Insulin Glargine,Hum.rec.anlog [Basaglar Kwikpen U-100] 50 units SQ DAILY Follow up with: VARUN KOTHARI MD [Primary Care Provider] - 04/18/21 9:15 am
== END 2021-04-12 11:04 | disposition home or self-care (01) ==
LOC: ED 16:02 → MED SURG 22:00
PROVIDERS: ADMIT Family Medicine; ATTEND Family Medicine
DX: R07.89 Other chest pain (principal); J44.1 Chronic obstructive pulmonary disease with (acute) exacerbation; E11.65 Type 2 diabetes mellitus with hyperglycemia; I10 Essential (primary) hypertension; Z72.0 Tobacco use; Z79.899 Other long term (current) drug therapy; Z20.828 Contact with and (suspected) exposure to other viral communicable diseases
CPT/HCPCS: 0241U; 36000; 36415; 71045; 80053; 81001; 82150; 82947; 83605; 83690; 83735; 83880; 84484; 85025; 85379; 85610; 85730; 93005; 93268; 96374; 96375; 96376; 99285; 99291; G0378; J0696; J2270; J2405; J3010; A9270-GY

== ENCOUNTER 2021-09-10 15:56 | Emergency (ER) | payer BC ==
--- NOTE | 2021-09-10 16:09 | ERPHSYRPT ---
- History of Present Illness Time Seen by Provider: 09/10/21 16:09 Historian: patient Exam Limitations: no limitations Physician History: This a 56-year-old white male has a history of recurrent abdominal pain and chronic recurrent pancreatitis. Patient has a history of hypertension and type 2 diabetes. His primary care doctor is Dr. Kothari. He is status post cholecy stectomy in the distant past. Patient is a current daily smoker of cigarettes. Patient cannot take Dilaudid but has had morphine in the past intravenously without any issues. I reviewed several relatively recent radiographic studies and I do not see any findings suggesting thoracic or abdominal aortic aneurysm. The pain he is experiencing is supraumbilical just to the left of midline and into his back on the left side Activities at Onset: none Abdominal Pain Onset Location: epigastric Pain Radiation: back Severity of Pain-Max: moderate Severity of Pain-Current: moderate Modifying Factors: Improves With: other (Nausea) Associated Symptoms: back, loss of appetite, nausea, No chest pain, No fever/chills, No vomiting Previous symptoms: same symptoms as today Allergies/Adverse Reactions: hydromorphone HCl [From Dilaudid] Adverse Reaction (Verified 09/10/21 16:15) ANXIETY itching Home Medications: Insulin Glargine,Hum.rec.anlog [Basaglar Kwikpen U-100] 50 units SQ DAILY 04/11/21 [History] Metoprolol Tartrate 25 mg PO DAILY 04/11/21 [History] Insulin Lispro [Humalog] 15 unit SQ TIDWMEALS 09/10/21 [History] Hx Tetanus, Diphtheria Vaccination/Date Given: Yes Hx Influenza Vaccination/Date Given: No Hx Pneumococcal Vaccination/Date Given: No Travel Risk - International Travel Have you traveled outside of the country in past 3 weeks: No - Coronavirus Screening Are you exhibiting any of the following symptoms?: No Close contact with a COVID-19 positive Pt in past 14-21 Days: No - Vaccine Status Have you recieved a Covid-19 vaccination: No - Review of Systems Constitutional: No Symptoms Eyes: No Symptoms Ears, Nose, & Throat: No Symptoms Respiratory: No Symptoms Cardiac: No Symptoms Abdominal/Gastrointestinal: Abdominal Pain, Nausea, No Vomiting, No Diarrhea, No Constipation Genitourinary Symptoms: No Symptoms Musculoskeletal: No Symptoms Skin: No Symptoms Neurological: No Symptoms Psychological: No Symptoms Endocrine: No Symptoms Hematologic/Lymphatic: No Symptoms Immunological/Allergic: No Symptoms All Other Systems: Reviewed and Negative - Past Medical History Pertinent Past Medical History: Yes Neurological History: No Pertinent History ENT History: No Pertinent History Cardiac History: Hypertension Respiratory History: No Pertinent History Endocrine Medical History: Diabetes Type II, Other Musculoskeletal History: No Pertinent History GI Medical History: Gallbladder Disease, Pancreatitis History: No Pertinent History Psycho-Social History: Anxiety Male Reproductive Disorders: No Pertinent History Other Medical History: bulging disc, aortic aneurysm - Past Surgical History Past Surgical History: Yes Neuro Surgical History: No Pertinent History Cardiac: No Pertinent History Respiratory: No Pertinent History Gastrointestinal: Cholecystectomy Genitourinary: No Pertinent History Musculoskeletal: Orthopedic Surgery Male Surgical History: No Pertinent History Other Surgical History: carpal tunnel L hand - Social History Smoking Status: Current every day smoker How long have you smoked: 40 yrs Exposure to second hand smoke: No Drug Use: none Patient Lives Alone: No - Nursing Vital Signs Nursing Vital Signs: Initial Vital Signs Temperature 98.1 F 09/10/21 16:14 Pulse Rate 86 09/10/21 16:14 Respiratory Rate 20 09/10/21 16:14 Blood Pressure 116/84 09/10/21 16:14 O2 Sat by Pulse Oximetry 93 L 09/10/21 16:14 Pain Scale Pain Intensity 7 - Physical Exam General Appearance: no apparent distress, alert, anxiety Eye Exam: PERRL/EOMI, eyes nml inspection Ears, Nose, Throat Exam: normal ENT inspection, moist mucous membranes Neck Exam: normal inspection, non-tender, supple, full range of motion Respiratory Exam: normal breath sounds, lungs clear, airway intact, No chest tenderness, No respiratory distress Cardiovascular Exam: regular rate/rhythm, normal heart sounds, normal peripheral pulses Gastrointestinal/Abdomen Exam: soft, normal bowel sounds, tenderness (Mild supraumbilical and to the left of midline tenderness with mild guarding with palpation in this area. 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 tested, normal mood/affect, nml cerebellar function, nml station & gait, sensation nml Skin Exam: normal color, warm, dry Lymphatic Exam: No adenopathy SpO2 Interpretation: normal O2 Delivery: Room Air - Course Nursing assessment & vital signs reviewed: Yes Ordered Tests: Active Orders 24 hr Category Date Time Status IV Insertion STAT Care 09/10/21 16:26 Active POCT Glucose Check STAT Care 09/10/21 16:17 Active ABDOMEN AND PELVIS W/0 CONTRAS [CT] Stat Exams 09/10/21 16:26 Taken AMYLASE Stat Lab 09/10/21 16:50 Completed CBC W DIFF Stat Lab 09/10/21 16:50 Completed CMP Stat Lab 09/10/21 16:50 Completed LIPASE Stat Lab 09/10/21 16:50 Completed Lactic Acid Stat Lab 09/10/21 16:30 Completed POCT GLUCOSE Stat Lab 09/10/21 16:13 Completed UA W/RFX CULTURE Stat Lab 09/10/21 16:29 Completed Medication Summary Discontinued Medications Generic Name Dose Route Start Last Admin Trade Name Freq PRN Reason Stop Dose Admin Sodium Chloride 1,000 mls @ 999 mls/hr 09/10/21 16:26 09/10/21 17:27 Sodium Chloride 0.9% 1000 Ml IV 09/10/21 17:26 Infused .Q1H1M STA Infusion Sodium Chloride Confirm 09/10/21 16:30 Sodium Chloride 0.9% 1000 Ml Administered 09/10/21 16:31 Dose 1,000 mls @ ud .ROUTE .STK-MED ONE Morphine Sulfate 6 mg 09/10/21 16:26 09/10/21 16:35 Morphine Sulfate 10 Mg/Ml Injection IV 09/10/21 16:27 6 mg STAT ONE Administration Morphine Sulfate Confirm 09/10/21 16:30 Morphine Sulfate 10 Mg/Ml Injection Administered 09/10/21 16:31 Dose 10 mg .ROUTE .STK-MED ONE Ondansetron HCl 4 mg 09/10/21 16:26 09/10/21 16:35 Ondansetron Hcl 4 Mg/2 Ml Vial IV 09/10/21 16:27 4 mg STAT ONE Administration Ondansetron HCl Confirm 09/10/21 16:30 Ondansetron Hcl 4 Mg/2 Ml Vial Administered 09/10/21 16:31 Dose 4 mg .ROUTE .STK-MED ONE Pantoprazole Sodium 40 mg 09/10/21 16:26 09/10/21 16:35 Pantoprazole 40 Mg Vial IV 09/10/21 16:27 40 mg STAT ONE Administration Pantoprazole Sodium Confirm 09/10/21 16:30 Pantoprazole 40 Mg Vial Administered 09/10/21 16:31 Dose 40 mg IV .K-MED ONE Lab/Rad Data: Laboratory Result Diagrams 09/10/21 16:50 09/10/21 16:50 Laboratory Results 09/10/21 09/10/21 09/10/21 Range/Units 16:50 16:50 16:30 WBC 7.4 (4.0-10.5) x10^3/uL RBC 5.70 H (4.1-5.6) x10^6/uL Hgb 16.7 (12.5-18.0) g/dL Hct 49.9 (42-50) % MCV 87.5 (78-100) fL MCH 29.3 (26-32) pg MCHC 33.5 (32-36) g/dL RDW 13.9 (11.5-14.0) % Plt Count 260 (150-450) x10^3/uL MPV 9.5 (7.5-11.0) fL Gran % 59.7 (36.0-66.0) % Immature Gran % (Auto) 0.3 (0.00-0.4) % Nucleat RBC Rel Count 0.0 (0.00-0.1) % Eos # (Auto) 0.08 (0-0.5) x10^3/uL Immature Gran # (Auto) 0.02 (0.00-0.03) x10^3u/L Absolute Lymphs (auto) 2.14 (1.0-4.6) x10^3/uL Absolute Monos (auto) 0.68 (0.0-1.3) x10^3/uL Absolute Nucleated RBC 0.00 (0.00-0.01) x10^3u/L Lymphocytes % 29.0 (24.0-44.0) % Monocytes % 9.2 (0.0-12.0) % Eosinophils % 1.1 (0.00-5.0) % Basophils % 0.7 (0.0-0.4) % Absolute Granulocytes 4.40 (1.4-6.9) x10^3/uL Basophils # 0.05 (0-0.4) x10^3/uL Sodium 134 L (137-145) mmol/L Potassium 3.9 (3.5-5.1) mmol/L Chloride 99 (98-107) mmol/L Carbon Dioxide 25 (22-30) mmol/L Anion Gap 13.9 (5-15) MEQ/L BUN 14 (9-20) mg/dL Creatinine 0.69 (0.66-1.25) mg/dL Estimated GFR > 60.0 ML/MIN Glucose 250 H (74-106) mg/dL POC Glucometer (74 to 106) mg/dL Lactic Acid 1.6 (0.4-2.0) Calcium 9.3 (8.4-10.2) mg/dL Total Bilirubin 0.70 (0.2-1.3) mg/dL AST 21 (17-59) U/L ALT 21 (0-50) U/L Alkaline Phosphatase 96 (38-126) U/L Serum Total Protein 8.0 (6.3-8.2) g/dL Albumin 4.5 (3.5-5.0) g/dL Amylase 96 (30-110) U/L Lipase 102 (23-300) U/L Urinalys Dipstick Clnc Urine Color (YELLOW) Urine Appearance (CLEAR) Urine pH (5-6) Ur Specific Dat[place] (1.005-1.025) POC Urine Protein Conf (Negative) Urine Ketones (NEGATIVE) Urine Nitrite (NEGATIVE) Urine Bilirubin (NEGATIVE) Urine Urobilinogen (0-1) mg/dL Urine Leukocytes (NEGATIVE) Urine WBC (Auto) (0-5) /HPF Urine RBC (Auto) (0-2) /HPF Urine Bacteria (Auto) (NEGATIVE) /HPF Urine RBC (0-5) Papi/ul Urine Mucus (Auto) (NEGATIVE) /HPF Ur Culture Indicated? Urine Glucose (NEGATIVE) mg/dL 09/10/21 09/10/21 Range/Units 16:29 16:13 WBC (4.0-10.5) x10^3/uL RBC (4.1-5.6) x10^6/uL Hgb (12.5-18.0) g/dL Hct (42-50) % MCV (78-100) fL MCH (26-32) pg MCHC (32-36) g/dL RDW (11.5-14.0) % Plt Count (150-450) x10^3/uL MPV (7.5-11.0) fL Gran % (36.0-66.0) % Immature Gran % (Auto) (0.00-0.4) % Nucleat RBC Rel Count (0.00-0.1) % Eos # (Auto) (0-0.5) x10^3/uL Immature Gran # (Auto) (0.00-0.03) x10^3u/L Absolute Lymphs (auto) (1.0-4.6) x10^3/uL Absolute Monos (auto) (0.0-1.3) x10^3/uL Absolute Nucleated RBC (0.00-0.01) x10^3u/L Lymphocytes % (24.0-44.0) % Monocytes % (0.0-12.0) % Eosinophils % (0.00-5.0) % Basophils % (0.0-0.4) % Absolute Granulocytes (1.4-6.9) x10^3/uL Basophils # (0-0.4) x10^3/uL Sodium (137-145) mmol/L Potassium (3.5-5.1) mmol/L Chloride (98-107) mmol/L Carbon Dioxide (22-30) mmol/L Anion Gap (5-15) MEQ/L BUN (9-20) mg/dL Creatinine (0.66-1.25) mg/dL Estimated GFR ML/MIN Glucose (74-106) mg/dL POC Glucometer 267 H (74 to 106) mg/dL Lactic Acid (0.4-2.0) Calcium (8.4-10.2) mg/dL Total Bilirubin (0.2-1.3) mg/dL AST (17-59) U/L ALT (0-50) U/L Alkaline Phosphatase (38-126) U/L Serum Total Protein (6.3-8.2) g/dL Albumin (3.5-5.0) g/dL Amylase (30-110) U/L Lipase (23-300) U/L Urinalys Dipstick Clnc MAIN LAB Urine Color YELLOW (YELLOW) Urine Appearance CLEAR (CLEAR) Urine pH 6.0 (5-6) Ur Specific Dat[place] 1.020 (1.005-1.025) POC Urine Protein Conf TRACE (Negative) Urine Ketones NEGATIVE (NEGATIVE) Urine Nitrite NEGATIVE (NEGATIVE) Urine Bilirubin NEGATIVE (NEGATIVE) Urine Urobilinogen 0.2 (0-1) mg/dL Urine Leukocytes NEGATIVE (NEGATIVE) Urine WBC (Auto) 0-2 (0-5) /HPF Urine RBC (Auto) 0-2 (0-2) /HPF Urine Bacteria (Auto) NONE (NEGATIVE) /HPF Urine RBC NEGATIVE (0-5) Papi/ul Urine Mucus (Auto) SLIGHT (NEGATIVE) /HPF Ur Culture Indicated? NO Urine Glucose 500 (NEGATIVE) mg/dL - Progress Progress: improved, pain not gone completely, re-examined Progress Note: 09/10/21 17:08 I clarified with the patient the statement that he has a history of aortic aneurysm. Several years ago he had a study done at [facility] in [facility]. 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 He has had ultrasounds and CAT scans of both the chest and abdomen with and without contrast documenting that there is no aortic aneurysm at all. 09/10/21 17:30 Cat scan of the abdomen and pelvis without contrast shows some mild haziness at the head of the pancreas. There is no other acute intra-abdominal intrapelvic findings. Medical decision making: This patient is afebrile, he has a normal white count, he has normal lactic acid level and normal amylase and lipase levels. He has radiographic evidence of some mild pancreatitis of the head of the pancreas. My plan is to hydrate him and then provide him with a prescription for couple days of some pain medicine and antiemetics. He is to avoid fatty greasy spicy foods and to start off of clear liquid diet over the next 12 to 24 hours. If his symptoms recur or worsen he can return to the emergency department. Counseled pt/family regarding: lab results, diagnosis, rad results - Departure Departure Disposition: Home Clinical Impression: Pancreatitis Condition: Stable Critical Care Time: No Referrals: VARUN KOTHARI MD [Primary Care Provider] - Follow up/PCP as directed Additional Instructions: Drink clear liquids only for the next 12 to 24 hours. May advance your diet slowly over the next 12 to 24 hours once you have no abdominal pain. Return to the emergency department if your symptoms worsen. Take your medication as prescribed. Avoid fatty greasy spicy foods. Prescriptions: Ondansetron ODT 4 MG [Zofran Odt 4 mg] 4 mg PO Q6H PRN PRN #10 tablet PRN Reason: Vomiting Hydrocodone/APAP 5/325 [[place] 5/325 mg] 1 each PO Q8H PRN PRN #6 tablet MDD 3 PRN Reason: Pain
[2021-09-10] MEDS ORDERED: PROTONIX 40 MG IV IV ONE ×2 (16:26→16:30)
[2021-09-10] MEDS ORDERED: Zofran 4 MG/2 ML VIAL IV ONE (16:26)
[2021-09-10] MEDS ORDERED: MORPHINE SULFATE 10 MG/ML IV ONE (16:26)
[2021-09-10] MEDS ORDERED: Sodium Chloride 0.9% 1000 ML 1,000 ML IV STA ×2 (16:26→17:40)
[2021-09-10] MEDS ORDERED: MORPHINE SULFATE 10 MG/ML ONE (16:30)
[2021-09-10] MEDS ORDERED: Zofran 4 MG/2 ML VIAL ONE (16:30)
[2021-09-10] MEDS ORDERED: Sodium Chloride 0.9% 1000 ML 1,000 ML ONE ×2 (16:30→17:45)
[2021-09-10 16:53] LABS: Basophil (Absolute #) 0.05 x10^3/uL (0-0.4); Eosinophil % 1.1 % (0.00-5.0); Eosinophil (Absolute #) 0.08 x10^3/uL (0-0.5); Hematocrit 49.9 % (42-50); Hemoglobin 16.7 g/dL (12.5-18.0); Lymphocyte (Absolute #) 2.14 x10^3/uL (1.0-4.6); Mean Cell Volume 87.5 fL (78-100); Mean Corpuscular Hemoglobin 29.3 pg (26-32); Mean Corpuscular Hgb Concent. 33.5 g/dL (32-36); Mean Platelet Volume 9.5 fL (7.5-11.0); Monocyte (Absolute #) 0.68 x10^3/uL (0.0-1.3); Monocytes % 9.2 % (0.0-12.0); Neutrophil % 59.7 % (36.0-66.0); Platelet Count 260 x10^3/uL (150-450); Red Cell Distribution Width 13.9 % (11.5-14.0); White Blood Count 7.4 x10^3/uL (4.0-10.5)
[2021-09-10 17:05] VITALS: O2SAT 95
[2021-09-10 17:06] LABS: Mucus SLIGHT /HPF (NEGATIVE); RBC 0-2 /HPF (0-2); WBC 0-2 /HPF (0-5)
[2021-09-10 17:13] LABS: ALBUMIN 4.5 g/dL (3.5-5.0); ALKALINE PHOSPHATASE 96 U/L (38-126); AMYLASE 96 U/L (30-110); ANION GAP 13.9 MEQ/L (5-15); BLOOD UREA NITROGEN 14 mg/dL (9-20); CHLORIDE 99 mmol/L (98-107); Calcium 9.3 mg/dL (8.4-10.2); Carbon Dioxide 25 mmol/L (22-30); Creatinine 1 0.69 mg/dL (0.66-1.25); EST GLOMERULAR FILTRATION RATE > 60.0 ML/MIN; Glucose 250 mg/dL (74-106); LIPASE 102 U/L (23-300); Potassium 3.9 mmol/L (3.5-5.1); SGOT/AST 21 U/L (17-59); SGPT/ALT 21 U/L (0-50); SODIUM 134 mmol/L (137-145)
[2021-09-10 17:15] LABS: Appearance CLEAR (CLEAR); Bilirubin NEGATIVE (NEGATIVE); Glucose 500 mg/dL (NEGATIVE); Ketones NEGATIVE (NEGATIVE); Nitrite NEGATIVE (NEGATIVE); Protein,Urine Dip TRACE (Negative); RBC NEGATIVE Ery/ul (0-5); Urine Cultured Indicated? NO; Urobilinogen 0.2 mg/dL (0-1)
[2021-09-10 17:16] LABS: Dipstick done @ ? MAIN LAB
[2021-09-10] MEDS ORDERED: MORPHINE SULFATE 4 MG INJ IV ONE (17:41)
[2021-09-10] MEDS ORDERED: MORPHINE SULFATE 4 MG INJ ONE (17:45)
[2021-09-10 18:26] VITALS: BP 101/62; PULSE 78
--- NOTE | 2021-09-10 22:12 | XRAY ---
Indication: Nausea and abdomen pain 3 days. History pancreatitis. Multiple contiguous axial images obtained through the abdomen and pelvis without contrast. Comparison: June 02, 2019 Lung bases again demonstrates bibasilar dependent atelectasis more than before. Heart not enlarged. Stomach distended with food/fluid. Noncontrasted stomach and bowel loops are nonobstructed with normal appendix. Again moderate diffuse scattered colonic fecal debris throughout. Head of pancreas again demonstrates subtle hazy appearance, possible early/mild pancreatitis. No free fluid/air. Stable cholecystectomy, left renal cysts, and a few hepatic/splenic calcified granulomas. Remaining liver, pancreas, spleen, adrenal glands, kidneys, ureters, and bladder are unremarkable for noncontrast exam. Stable mild scattered aortoiliac calcifications without AAA. Osseous structures intact. No ventral or inguinal hernias. Impression: 1. Again hazy appearing pancreatic head. Rule out mild/early pancreatitis. 2. Again moderate diffuse fecal stasis, left renal cysts, and old granulomatous disease.
== END 2021-09-10 18:40 | disposition home or self-care (01) ==
LOC: ED 15:56
DX: K85.90 Acute pancreatitis without necrosis or infection, unspecified (principal); R10.13 Epigastric pain; I10 Essential (primary) hypertension; E11.9 Type 2 diabetes mellitus without complications; Z72.0 Tobacco use; Z79.4 Long term (current) use of insulin; Z79.899 Other long term (current) drug therapy; Z28.310 Unvaccinated for COVID-19; Z79.891 Long term (current) use of opiate analgesic
CPT/HCPCS: 36000; 36415; 74176; 80053; 81015; 82150; 82947; 83605; 83690; 85025; 96374; 96375; 96376; 99284; J2270; J2405

== ENCOUNTER 2022-02-18 11:38 | Emergency (ER) | payer BC ==
[2022-02-18 12:02] VITALS: BP 149/86; PULSE 76; O2SAT 97
--- NOTE | 2022-02-18 12:06 | ERPHSYRPT ---
- History of Present Illness Time Seen by Provider: 02/18/22 12:06 Historian: patient Exam Limitations: no limitations Patient Subjective Stated Complaint: pt here for right flank pain for over week now, was seen and had studies done, denies any injury. Triage Nursing Assessment: pt alert, walked in, resp easy, skin w/d/p.abd soft, face mask in place, no edema ntoed Physician History: This is a 56-year-old white male patient of Dr. Kothari who has chronic back pain and presents with approximately 10-day history of right flank pain that came on 08 February 2022. He did not suffer any type of acute fall that he recalls. He has had the pain that has been persistent. Patient reached out to Dr. Kothari and Dr. Kothari saw him in the clinic prior to this evaluation. Patient underwent blood work, urinalysis, and a CAT scan of the abdomen and pelvis over the last 4 to 5 days. The urinalysis and blood work does not show anything acute. There is evidence of fecal stasis on the CAT scan of the abdomen pelvis without contrast but nothing acute or emergent. Patient is here today because of the persistence of his symptoms despite receiving a prescription for Toradol and Flexeril. These medications do not appear to be helping the patient. Patient has no chest pain. He is not short of breath. He has had no fevers. He has no flulike symptoms. Patient has had a history of pancreatitis in the p ast and has received morphine intravenously for this. He can tolerate that and [place] pain medicine orally. This pain is different than his chronic back pain issues. I reviewed old, recent lab results as well as notes from patient's recent CAT scan of the abdomen pelvis. Timing/Duration: day(s) (10) Quality: stabbing Abdominal Pain Onset Location: flank Pain Radiation: no radiation (Right) Severity of Pain-Max: moderate Severity of Pain-Current: moderate Modifying Factors: Improves With: movement Associated Symptoms: denies symptoms Previous symptoms: same symptoms as today, recently seen, recently treated Allergies/Adverse Reactions: hydromorphone HCl [From Dilaudid] Adverse Reaction (Verified 02/18/22 12:01) ANXIETY itching Home Medications: Insulin Glargine,Hum.rec.anlog [Basaglar Kwikpen U-100] 50 units SQ DAILY 04/11/21 [History] Metoprolol Tartrate 25 mg PO DAILY 04/11/21 [History] Insulin Lispro [Humalog] 15 unit SQ TIDWMEALS 09/10/21 [History] Hx Tetanus, Diphtheria Vaccination/Date Given: No Hx Influenza Vaccination/Date Given: No Hx Pneumococcal Vaccination/Date Given: No Immunizations Up to Date: Yes Travel Risk - International Travel Have you traveled outside of the country in past 3 weeks: No - Coronavirus Screening Are you exhibiting any of the following symptoms?: No Close contact with a COVID-19 positive Pt in past 14-21 Days: No - Vaccine Status Have you recieved a Covid-19 vaccination: No - Review of Systems Constitutional: No Symptoms Eyes: No Symptoms Ears, Nose, & Throat: No Symptoms Respiratory: No Symptoms Cardiac: No Symptoms Abdominal/Gastrointestinal: No Symptoms Genitourinary Symptoms: Flank Pain (Right) Musculoskeletal: Back Pain Skin: No Symptoms Neurological: No Symptoms Psychological: No Symptoms Endocrine: No Symptoms Hematologic/Lymphatic: No Symptoms Immunological/Allergic: No Symptoms All Other Systems: Reviewed and Negative - Past Medical History Pertinent Past Medical History: Yes Neurological History: No Pertinent History ENT History: No Pertinent History Cardiac History: Hypertension Respiratory History: No Pertinent History Endocrine Medical History: Diabetes Type II, Other Musculoskeletal History: Degenerative Disk Disease GI Medical History: Pancreatitis History: No Pertinent History Psycho-Social History: Anxiety Male Reproductive Disorders: No Pertinent History Other Medical History: bulging disc, aortic aneurysm - Past Surgical History Past Surgical History: Yes Neuro Surgical History: No Pertinent History Cardiac: No Pertinent History Respiratory: No Pertinent History Gastrointestinal: Cholecystectomy Genitourinary: No Pertinent History Musculoskeletal: Orthopedic Surgery Male Surgical History: No Pertinent History Other Surgical History: carpal tunnel L hand - Social History Smoking Status: Current every day smoker How long have you smoked: 40 yrs Exposure to second hand smoke: Yes Drug Use: none Patient Lives Alone: No - Nursing Vital Signs Nursing Vital Signs: Initial Vital Signs Temperature 98.5 F 02/18/22 12:01 Pulse Rate 76 02/18/22 12:01 Respiratory Rate 18 02/18/22 12:01 Blood Pressure 149/86 02/18/22 12:01 O2 Sat by Pulse Oximetry 97 02/18/22 12:01 Pain Scale Pain Intensity 8 - Physical Exam General Appearance: no apparent distress, alert, anxiety Eye Exam: PERRL/EOMI, eyes nml inspection Ears, Nose, Throat Exam: normal ENT inspection, moist mucous membranes Neck Exam: normal inspection, non-tender, supple, full range of motion Respiratory Exam: normal breath sounds, lungs clear, airway intact, No chest tenderness, No respiratory distress Cardiovascular Exam: regular rate/rhythm, normal heart sounds, normal peripheral pulses Gastrointestinal/Abdomen Exam: soft, normal bowel sounds, No tenderness Rectal Exam: not done Back Exam: CVA tenderness (Right side), muscle spasm (Right lower), No vertebral tenderness Extremity Exam: normal inspection, normal range of motion, pelvis stable Neurologic Exam: alert, oriented x 3, cooperative, 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 tested, normal mood/affect, nml cerebellar function, nml station & gait, sensation nml Skin Exam: normal color, warm, dry Lymphatic Exam: No adenopathy SpO2 Interpretation: normal SpO2: 97 O2 Delivery: Room Air Ordered Tests: Medication Summary Discontinued Medications Generic Name Dose Route Start Last Admin Trade Name Chaz PRN Reason Stop Dose Admin Ketorolac Tromethamine 30 mg 02/18/22 13:04 02/18/22 13:42 Ketorolac Tromethamine 30 Mg/Ml Inj IV 02/18/22 13:05 30 mg STAT ONE Administration Ketorolac Tromethamine Confirm 02/18/22 13:37 Ketorolac Tromethamine 30 Mg/Ml Inj Administered 02/18/22 13:38 Dose 30 mg .ROUTE .STK-MED ONE Morphine Sulfate 6 mg 02/18/22 13:24 02/18/22 13:44 Morphine Sulfate 10 Mg/Ml Injection IV 02/18/22 13:25 6 mg STAT ONE Administration Morphine Sulfate Confirm 02/18/22 13:37 Morphine Sulfate 10 Mg/Ml Injection Administered 02/18/22 13:38 Dose 10 mg .ROUTE .STK-MED ONE Ondansetron HCl 4 mg 02/18/22 13:04 02/18/22 13:41 Ondansetron Hcl 4 Mg/2 Ml Vial IV 02/18/22 13:05 4 mg STAT ONE Administration Ondansetron HCl Confirm 02/18/22 13:37 Ondansetron Hcl 4 Mg/2 Ml Vial Administered 02/18/22 13:38 Dose 4 mg .ROUTE .STK-MED ONE Orphenadrine Citrate 60 mg 02/18/22 13:05 02/18/22 13:43 Orphenadrine Citrate 60 Mg/2 Ml Vial IV 02/18/22 13:06 60 mg STAT ONE Administration Orphenadrine Citrate Confirm 02/18/22 13:37 Orphenadrine Citrate 60 Mg/2 Ml Vial Administered 02/18/22 13:38 Dose 60 mg .ROUTE .STK-MED ONE - Progress Progress: improved, pain not gone completely Progress Note: 02/18/22 13:49 Medical decision making: I will treat this patient's symptoms as musculoskeletal pain. I do not think it is necessary to repeat blood work, urinalysis and CAT scan of the abdomen pelvis when all these test results have returned within the last 4 to 5 days. We will have him stop his Toradol and Flexeril. Although write a prescription for [place] 5/325, orphenadrine, and prednisone. He will follow-up with Dr. Kothari. Counseled pt/family regarding: diagnosis, need for follow-up - Departure Departure Disposition: Home Clinical Impression: Musculoskeletal pain, Back pain Condition: Stable Critical Care Time: No Referrals: VARUN KOTHARI MD [Primary Care Provider] - Follow up/PCP as directed Additional Instructions: Stop your Toradol. Stop your Flexeril. Take your new prescriptions as prescribed. Follow-up with Dr. Kothari in his office for further evaluation and management. Call to make an appointment today. Monitor and treat your blood sugar levels closely while taking the prednisone. Prescriptions: Hydrocodone/APAP 5/325 [[place] 5/325 mg] 1 each PO Q8H PRN PRN #6 tablet MDD 3 PRN Reason: Pain Prednisone 10 mg [Deltasone 10 mg] 10 mg PO TID #12 tablet Orphenadrine Citrate 100 mg [Norflex 100 MG Tablet] 100 mg PO BID #10 tab
[2022-02-18] MEDS ORDERED: TORAdol 30 mg Injection IV ONE (13:04)
[2022-02-18] MEDS ORDERED: Zofran 4 MG/2 ML VIAL IV ONE (13:04)
[2022-02-18] MEDS ORDERED: Norflex 60 MG/2 ML IV ONE (13:05)
[2022-02-18] MEDS ORDERED: MORPHINE SULFATE 10 MG/ML IV ONE (13:24)
[2022-02-18] MEDS ORDERED: Norflex 60 MG/2 ML ONE (13:37)
[2022-02-18] MEDS ORDERED: MORPHINE SULFATE 10 MG/ML ONE (13:37)
[2022-02-18] MEDS ORDERED: TORAdol 30 mg Injection ONE (13:37)
[2022-02-18] MEDS ORDERED: Zofran 4 MG/2 ML VIAL ONE (13:37)
== END 2022-02-18 14:36 | disposition home or self-care (01) ==
LOC: ED 11:38
DX: M54.50 Low back pain, unspecified (principal); R10.9 Unspecified abdominal pain; I10 Essential (primary) hypertension; E11.9 Type 2 diabetes mellitus without complications; Z79.891 Long term (current) use of opiate analgesic; Z79.52 Long term (current) use of systemic steroids; Z79.4 Long term (current) use of insulin; Z79.899 Other long term (current) drug therapy; Z28.310 Unvaccinated for COVID-19; Z72.0 Tobacco use
CPT/HCPCS: 36000; 96374; 96375; 99284; J1885; J2270; J2360; J2405

== ENCOUNTER 2022-04-15 06:42 | Day surgery (SDC) | payer BC ==
[2022-04-15] MEDS ORDERED: LIDOCAINE HCL 2% 100 MG/5 ML IJ ONE (06:43)
[2022-04-15] MEDS ORDERED: Depo-Medrol 40 MG/ML IM ONE (06:43)
[2022-04-15] MEDS ORDERED: DIPRIVAN 200 MG/20 ML IV ONE (08:30)
--- NOTE | 2022-04-15 09:43 | XRAY ---
Indication: Bilateral L4-S1 MBB. Intraoperative fluoroscopy provided for 14 seconds. Single digital spot image submitted for interpretation demonstrates posterior needle tips projecting over the expected left and right L4-S1 nerve roots. Correlate with intraoperative findings/report.
--- NOTE | 2022-04-15 09:50 | XRAY ---
14 seconds of fluoroscopy was used in surgery for a bilateral L4-S1 MBB.
[2022-04-15] MEDS ORDERED: Lactated Ringers 1,000 ML IV ONE (11:49)
== END 2022-04-15 08:55 | disposition home or self-care (01) ==
LOC: SDC-PAIN 06:42
PROVIDERS: ATTEND Psychiatry & Neurology Pain Medicine
DX: M47.816 Spondylosis without myelopathy or radiculopathy, lumbar region (principal); E11.9 Type 2 diabetes mellitus without complications; Z79.899 Other long term (current) drug therapy
CPT/HCPCS: 64493; 64494; 72020; 77002; 82947; J1030; J2704

== ENCOUNTER 2022-04-29 07:27 | Day surgery (SDC) | payer BC ==
[2022-04-29] MEDS ORDERED: BUPIVACAINE 0.5% VIAL IJ ONE (07:28)
[2022-04-29] MEDS ORDERED: Depo-Medrol 40 MG/ML IM ONE (07:28)
[2022-04-29] MEDS ORDERED: DIPRIVAN 200 MG/20 ML IV ONE (09:00)
--- NOTE | 2022-04-29 09:30 | XRAY ---
Indication: Bilateral L4-S1 MBB. Intraoperative fluoroscopy provided for 10 seconds. Single digital spot image submitted for interpretation demonstrate posterior needle tips projecting over the expected left and right L4-S1 nerve roots. Correlate with intraoperative findings/report.
--- NOTE | 2022-04-29 09:32 | XRAY ---
10 seconds of fluoroscopy was used in surgery for a bilateral L4-S1 MBB.
[2022-04-29] MEDS ORDERED: Lactated Ringers 1,000 ML IV ONE (10:08)
== END 2022-04-29 09:30 | disposition home or self-care (01) ==
LOC: SDC-PAIN 07:27
PROVIDERS: ATTEND Psychiatry & Neurology Pain Medicine
DX: M47.816 Spondylosis without myelopathy or radiculopathy, lumbar region (principal); E11.9 Type 2 diabetes mellitus without complications; Z79.899 Other long term (current) drug therapy
CPT/HCPCS: 64493; 64494; 72020; 77002; 82947; J1030; J2704

== ENCOUNTER 2022-05-20 06:45 | Day surgery (SDC) | payer BC ==
[2022-05-20] MEDS ORDERED: Depo-Medrol 40 MG/ML IM ONE (06:46)
[2022-05-20] MEDS ORDERED: BUPIVACAINE 0.5% VIAL IJ ONE (06:46)
[2022-05-20] MEDS ORDERED: LIDOCAINE HCL 1% 50 MG/5 ML VL PF IJ ONE (06:46)
[2022-05-20] MEDS ORDERED: DIPRIVAN 200 MG/20 ML IV ONE (08:30)
--- NOTE | 2022-05-20 09:57 | XRAY ---
Indication: Left L4-S1 RFA. Intraoperative fluoroscopy provided for 19 seconds. 4 digital spot image submitted for interpretation demonstrates posterior needle tips projecting over the expected left L4-S1 nerve roots. Correlate with intraoperative findings/report.
[2022-05-20] MEDS ORDERED: Lactated Ringers 1,000 ML IV ONE (11:41)
--- NOTE | 2022-05-20 12:22 | XRAY ---
19 seconds of fluoroscopy was used in surgery for a left L4-S1 RFA.
== END 2022-05-20 09:00 | disposition home or self-care (01) ==
LOC: SDC-PAIN 06:45
PROVIDERS: ATTEND Psychiatry & Neurology Pain Medicine
DX: M47.817 Spondylosis without myelopathy or radiculopathy, lumbosacral region (principal); E11.9 Type 2 diabetes mellitus without complications; Z79.899 Other long term (current) drug therapy
CPT/HCPCS: 64635; 64636; 72100; 77002; 82947; J1030; J2001; J2704

== ENCOUNTER 2022-05-27 10:21 | Day surgery (SDC) | payer BC ==
[2022-05-27] MEDS ORDERED: LIDOCAINE HCL 1% 50 MG/5 ML VL PF IJ ONE (10:22)
[2022-05-27] MEDS ORDERED: BUPIVACAINE 0.5% VIAL IJ ONE (10:22)
[2022-05-27] MEDS ORDERED: Depo-Medrol 40 MG/ML IM ONE (10:22)
[2022-05-27] MEDS ORDERED: DIPRIVAN 200 MG/20 ML IV ONE (12:07)
[2022-05-27] MEDS ORDERED: Lactated Ringers 1,000 ML IV ONE (12:47)
--- NOTE | 2022-05-27 12:59 | XRAY ---
Indication: Right L4-S1 RFA. Intraoperative fluoroscopy provided 16 seconds. 3 digital spot image submitted for interpretation demonstrates posterior needle tips projecting over the expected right L4-S1 nerve roots. Correlate with intraoperative findings/report.
--- NOTE | 2022-05-27 15:13 | XRAY ---
16 seconds of fluoroscopy was used in surgery for a right L4-S1 RFA.
== END 2022-05-27 12:35 | disposition home or self-care (01) ==
LOC: SDC-PAIN 10:21
PROVIDERS: ATTEND Psychiatry & Neurology Pain Medicine
DX: M47.816 Spondylosis without myelopathy or radiculopathy, lumbar region (principal); E11.9 Type 2 diabetes mellitus without complications; Z79.899 Other long term (current) drug therapy
CPT/HCPCS: 64635; 64636; 72100; 77002; 82947; J1030; J2001; J2704

== ENCOUNTER 2022-07-22 07:36 | Day surgery (SDC) | payer BC | END 2022-07-22 08:00 | disposition home or self-care (01) | LOC: SDC-PAIN 07:36 | PROVIDERS: ATTEND Psychiatry & Neurology Pain Medicine | DX: Z53.8 Procedure and treatment not carried out for other reasons (principal); E11.9 Type 2 diabetes mellitus without complications | CPT/HCPCS: 82947 ==

== ENCOUNTER 2024-04-28 13:19 | Emergency (ER) | payer BC ==
--- NOTE | 2024-04-28 13:22 | ERPHSYRPT ---
- History of Present Illness Time Seen by Provider: 04/28/24 13:22 Source: patient Exam Limitations: no limitations Physician History: This is a 58-year-old white male patient of Dr. Kothari who arrives to emergency department by private vehicle with complaint of right flank pain. Symptoms began on 04/27/2024 and is described as sharp and stabbing. It is not worse than yesterday but is not improved either. He has a low level of mild nausea. He has had no vomiting. He denies chest pain and he denies shortness of breath. He has never had this type and location of pain in the past. There is been no fall and no traumatic injury. Patient is allergic to hydromorphone but does state that he has been given morphine in the past without adverse reactions. Patient has a history of hypertension, insulin-dependent diabetes and chronic low back pain. Timing/Duration: yesterday, worse Method of Injury: other (No known injury) Quality: sharp, stabbing Severity of Pain-Max: moderate Severity of Pain-Current: moderate Modifying Factors: Improves With: movement Associated Symptoms: No urinary incontinence, No loss of bowel control, No problems urinating, No numbness in legs/feet, No lower back pain Previous symptoms: no prior history, no recent treatment Allergies/Adverse Reactions: hydromorphone HCl [From Dilaudid] Adverse Reaction (Verified 04/28/24 13:44) ANXIETY itching Home Medications: Insulin Glargine,Hum.rec.anlog [Basaglar Kwikpen U-100] 50 units SQ DAILY 04/11/21 [History] Metoprolol Tartrate 25 mg PO DAILY 04/11/21 [History] Insulin Lispro [Humalog] 22 unit SQ TIDWMEALS 09/10/21 [History] Cyclobenzaprine HCl 10 mg [Cyclobenzaprine 10 MG] 10 mg PO BID 04/28/24 [History] Gabapentin [Neurontin ] 300 mg PO TID 04/28/24 [History] Losartan/Hydrochlorothiazide [Losartan-Hctz 50-12.5 mg Tab] 1 each PO DAILY 04/28/24 [History] Semaglutide [Ozempic] 2 mg SQ UD 04/28/24 [History] Simvastatin 20Mg [Zocor 20Mg] 20 mg PO DAILY 04/28/24 [History] Hx Tetanus, Diphtheria Vaccination/Date Given: No Hx Influenza Vaccination/Date Given: No Hx Pneumococcal Vaccination/Date Given: No Travel Risk - International Travel Have you traveled outside of the country in past 3 weeks: No - Emerging Infectious Disease Are you exhibiting symptoms associated with any current EIDs: No - Review of Systems Constitutional: No Symptoms Eyes: No Symptoms Ears, Nose, & Throat: No Symptoms Respiratory: No Symptoms Cardiac: No Symptoms Abdominal/Gastrointestinal: No Symptoms Genitourinary Symptoms: Flank Pain (Right side) Musculoskeletal: No Symptoms Skin: No Symptoms Neurological: No Symptoms Psychological: No Symptoms Endocrine: No Symptoms Hematologic/Lymphatic: No Symptoms Immunological/Allergic: No Symptoms All Other Systems: Reviewed and Negative - Past Medical History Neurological History: No Pertinent History, Peripheral Neuropathy Cardiac History: Hypertension Respiratory History: No Pertinent History Endocrine Medical History: Diabetes Type II Musculoskeletal History: Osteoarthritis Other Medical History: NOTES HISTORY OF BACK PAIN, HISTORY OF BULDGING DISCS. - Past Surgical History Past Surgical History: Yes Neuro Surgical History: No Pertinent History Cardiac: No Pertinent History Respiratory: No Pertinent History Gastrointestinal: Cholecystectomy Genitourinary: No Pertinent History Musculoskeletal: Orthopedic Surgery Male Surgical History: No Pertinent History Other Surgical History: carpal tunnel L hand - Social History Smoking Status: Current every day smoker How long have you smoked: 40 yrs Exposure to second hand smoke: Yes Drug Use: none Patient Lives Alone: No - Nursing Vital Signs Nursing Vital Signs: Initial Vital Signs Temperature 97.2 F 04/28/24 13:55 Pulse Rate 81 04/28/24 13:55 Respiratory Rate 18 04/28/24 13:55 Blood Pressure 150/78 04/28/24 13:55 O2 Sat by Pulse Oximetry 97 04/28/24 13:55 Pain Scale Pain Intensity [Right Back] 10 Pain Intensity 7 - Physical Exam General Appearance: mild distress, alert, anxiety Eye Exam: PERRL/EOMI, eyes nml inspection Ears, Nose, Throat Exam: normal ENT inspection, moist mucous membranes Neck Exam: normal inspection, non-tender, supple, full range of motion Respiratory Exam: normal breath sounds, lungs clear, airway intact, No chest tenderness, No respiratory distress Cardiovascular Exam: regular rate/rhythm, normal heart sounds, normal peripheral pulses Gastrointestinal Exam: soft, normal bowel sounds, No tenderness Rectal Exam: not done Back Exam: normal inspection, normal range of motion, CVA tenderness (Right side flank pain) Extremity Exam: normal inspection, normal range of motion, pelvis stable Neurologic Exam: alert, oriented x 3, cooperative, manager produce II-XII nml as tested, nml cerebellar function, nml station & gait, sensation nml Skin Exam: normal color, warm, dry Lymphatic Exam: No adenopathy SpO2 Interpretation: normal O2 Delivery: Room Air - Course Nursing assessment & vital signs reviewed: Yes EKG Interpreted by Me: RATE (74), Sinus Rhythm, NORMAL AXIS, NORMAL INTERVALS, NORMAL QRS, Other (QTc is 449. I do not appreciate an acute ischemia on today's twelve-lead EKG.) Ordered Tests: Active Orders 24 hr Category Date Time Status IV Insertion STAT Care 04/28/24 14:30 Active ABDOMEN AND PELVIS W/0 CONTRAS [CT] Stat Exams 04/28/24 14:31 Completed CHEST WITH CONTRAST [CT] Stat Exams 04/28/24 18:20 Taken AMYLASE Stat Lab 04/28/24 14:00 Completed CBC W DIFF Stat Lab 04/28/24 14:00 Completed CMP Stat Lab 04/28/24 14:00 Completed D-DIMER QUANTITATIVE Stat Lab 04/28/24 14:00 Completed LIPASE Stat Lab 04/28/24 14:00 Completed TROPONIN Q4H Lab 04/28/24 14:00 Completed TROPONIN Q4H Lab 04/28/24 17:50 Completed TROPONIN Q4H Lab 04/29/24 00:15 Ordered UA W/RFX UR CULTURE Stat Lab 04/28/24 14:33 Completed Medication Summary Discontinued Medications Generic Name Dose Route Start Last Admin Trade Name Chaz PRN Reason Stop Dose Admin Sodium Chloride 500 mls @ 500 mls/hr 04/28/24 18:20 04/28/24 19:35 Sodium Chloride 0.9% 500 Ml IV 04/28/24 19:19 Infused .Q1H ONE Infusion Sodium Chloride Confirm 04/28/24 18:26 Sodium Chloride 0.9% 500 Ml Administered 04/28/24 18:27 Dose 500 mls @ ud IV .STK-MED ONE Morphine Sulfate 6 mg 04/28/24 14:44 04/28/24 14:51 Morphine Sulfate 10 Mg/Ml Injection IV 04/28/24 14:45 6 mg STAT ONE Administration Morphine Sulfate Confirm 04/28/24 14:47 Morphine Sulfate 10 Mg/Ml Injection Administered 04/28/24 14:48 Dose 10 mg .ROUTE .STK-MED ONE Morphine Sulfate 6 mg 04/28/24 17:50 04/28/24 18:23 Morphine Sulfate 10 Mg/Ml Injection IV 04/28/24 17:51 Not Given STAT ONE Morphine Sulfate 2 mg 04/28/24 18:19 04/28/24 18:34 Morphine Sulfate 2 Mg/Ml Inj IV 04/28/24 18:20 2 mg STAT ONE Administration Morphine Sulfate Confirm 04/28/24 18:25 Morphine Sulfate 2 Mg/Ml Inj Administered 04/28/24 18:26 Dose 2 mg .ROUTE .STK-MED ONE Ondansetron HCl 4 mg 04/28/24 14:30 04/28/24 14:37 Ondansetron Hcl 4 Mg/2 Ml Vial IV 04/28/24 14:31 4 mg STAT ONE Administration Ondansetron HCl Confirm 04/28/24 14:35 Ondansetron Hcl 4 Mg/2 Ml Vial Administered 04/28/24 14:36 Dose 4 mg .ROUTE .STK-MED ONE Lab/Rad Data: Laboratory Result Diagrams 04/28/24 14:00 04/28/24 14:00 Laboratory Results 04/28/24 04/28/24 04/28/24 Range/Units 17:50 14:33 14:00 WBC (4.23-9.07) x10^3/uL RBC (4.63-6.08) x10^6/uL Hgb (13.7-17.5) g/dL Hct (40.1-51.0) % MCV (79.0-92.2) fL MCH (25.7-32.2) pg MCHC (32.3-36.5) g/dL RDW (11.6-14.4) % Plt Count (163-337) x10^3/uL MPV (9.4-12.4) fL Gran % (34.0-67.9) % Immature Gran % (Auto) (0.001-0.429) % Nucleat RBC Rel Count (0.00-0.2) % Eos # (Auto) (0.04-0.54) x10^3/uL Immature Gran # (Auto) (0.001-0.031) x10^3u/L Absolute Lymphs (auto) (1.32-3.57) x10^3/uL Absolute Monos (auto) (0.30-0.82) x10^3/uL Absolute Nucleated RBC (0.00-0.012) x10^3u/L Lymphocytes % (21.8-53.1) % Monocytes % (5.3-12.2) % Eosinophils % (0.8-7.0) % Basophils % (0.2-1.2) % Absolute Granulocytes (1.78-5.38) x10^3/uL Basophils # (0.01-0.08) x10^3/uL D-Dimer (0.0-0.50) mg/L Sodium (135-145) mmol/L Potassium (3.5-5.1) mmol/L Chloride (98-107) mmol/L Carbon Dioxide (22-30) mmol/L Anion Gap (5-15) MEQ/L BUN (9-20) mg/dL Creatinine (0.66-1.25) mg/dL Estimated GFR ML/MIN Glucose (74-106) mg/dL Calcium (8.4-10.2) mg/dL Total Bilirubin (0.2-1.3) mg/dL AST (17-59) U/L ALT (0-50) U/L Alkaline Phosphatase (38-126) U/L Troponin I < 0.012 < 0.012 (0.000-0.033) ng/mL Serum Total Protein (6.3-8.2) g/dL Albumin (3.5-5.0) g/dL Amylase (30-110) U/L Lipase (23-300) U/L Urine Color Yellow (Yellow) Urine Appearance Clear (Clear) Urine pH 6.5 (4.6-8.0) Ur Specific Magnolia >=1.030 A (1.005-1.030) Urine Protein Negative (Negative) Urine Glucose (UA) >=1000 A (Negative) mg/dL Urine Ketones Negative (Negative) Urine Blood Negative (Negative) Urine Nitrite Negative (Negative) Urine Bilirubin Negative (Negative) Urine Urobilinogen 0.2 (0.2) mg/dL Ur Leukocyte Esterase Negative (Negative) U Hyaline Cast (Auto) NONE SEEN (0-2) /LPF Urine Microscopic RBC 0-2 (0-5) /HPF Urine Microscopic WBC 0-2 (0-5) /HPF Ur Epithelial Cells None Seen (None Seen) /HPF Urine Bacteria None Seen (None Seen) /HPF Urine Culture Reflexed NO (NO) 04/28/24 04/28/24 04/28/24 Range/Units 14:00 14:00 14:00 WBC 8.1 (4.23-9.07) x10^3/uL RBC 5.87 (4.63-6.08) x10^6/uL Hgb 17.4 (13.7-17.5) g/dL Hct 52.0 H (40.1-51.0) % MCV 88.6 (79.0-92.2) fL MCH 29.6 (25.7-32.2) pg MCHC 33.5 (32.3-36.5) g/dL RDW 13.4 (11.6-14.4) % Plt Count 250 (163-337) x10^3/uL MPV 10.2 (9.4-12.4) fL Gran % 59.9 (34.0-67.9) % Immature Gran % (Auto) 0.2 (0.001-0.429) % Nucleat RBC Rel Count 0.0 (0.00-0.2) % Eos # (Auto) 0.17 (0.04-0.54) x10^3/uL Immature Gran # (Auto) 0.02 (0.001-0.031) x10^3u/L Absolute Lymphs (auto) 2.28 (1.32-3.57) x10^3/uL Absolute Monos (auto) 0.74 (0.30-0.82) x10^3/uL Absolute Nucleated RBC 0.00 (0.00-0.012) x10^3u/L Lymphocytes % 28.1 (21.8-53.1) % Monocytes % 9.1 (5.3-12.2) % Eosinophils % 2.1 (0.8-7.0) % Basophils % 0.6 (0.2-1.2) % Absolute Granulocytes 4.84 (1.78-5.38) x10^3/uL Basophils # 0.05 (0.01-0.08) x10^3/uL D-Dimer 0.58 H (0.0-0.50) mg/L Sodium 138 (135-145) mmol/L Potassium 4.7 (3.5-5.1) mmol/L Chloride 98 (98-107) mmol/L Carbon Dioxide 29 (22-30) mmol/L Anion Gap 15.7 H (5-15) MEQ/L BUN 14 (9-20) mg/dL Creatinine 0.77 (0.66-1.25) mg/dL Estimated GFR 104.4 ML/MIN Glucose 211 H (74-106) mg/dL Calcium 9.1 (8.4-10.2) mg/dL Total Bilirubin 0.70 (0.2-1.3) mg/dL AST 25 (17-59) U/L ALT 25 (0-50) U/L Alkaline Phosphatase 82 (38-126) U/L Troponin I (0.000-0.033) ng/mL Serum Total Protein 8.2 (6.3-8.2) g/dL Albumin 4.7 (3.5-5.0) g/dL Amylase 67 (30-110) U/L Lipase 76 (23-300) U/L Urine Color (Yellow) Urine Appearance (Clear) Urine pH (4.6-8.0) Ur Specific Magn[place] (1.005-1.030) Urine Protein (Negative) Urine Glucose (UA) (Negative) mg/dL Urine Ketones (Negative) Urine Blood (Negative) Urine Nitrite (Negative) Urine Bilirubin (Negative) Urine Urobilinogen (0.2) mg/dL Ur Leukocyte Esterase (Negative) U Hyaline Cast (Auto) (0-2) /LPF Urine Microscopic RBC (0-5) /HPF Urine Microscopic WBC (0-5) /HPF Ur Epithelial Cells (None Seen) /HPF Urine Bacteria (None Seen) /HPF Urine Culture Reflexed (NO) - Progress Progress: improved, pain not gone completely Progress Note: 04/28/24 15:14 My medical decision making and the assignment of moderate complexity is based on review of the patient's past medical history, review of the patient's medication list, reviewed patient drug allergies, history present illness and physical findings on examination. The workup in this patient includes placement of intravenous line, infusion of morphine and Zofran intravenously, CBC, CMP, amylase, lipase, urinalysis, CT scan of the abdomen pelvis without contrast. Differential diagnosis includes but is not limited to muscle skeletal pain, pyelonephritis, uti, colitis, diverticulitis, ureterolithiasis 04/28/24 16:21 I interpreted the patient's laboratory data results. There is no evidence of acute, emergent medical issue based on the laboratory data results. The CT scan of the abdomen pelvis without contrast was interpreted by the radiologist and I reviewed the impression. The impression states negative renal calculus. Negative evidence for obstructive uropathy. Mild diffuse fecal stasis. No new or acute findings. Patient suddenly began to have some central, substernal sharp chest pain without radiation. A twelve-lead EKG was performed. The findings are d ictated/documented in the EKG read section. We added troponin and D-dimer labs. 04/28/24 17:36 Patient has no chest pain. His symptoms of the chest have resolved. His initial troponin normal/negative. His D-dimer is slightly elevated. He has low risk factors. However, I will have a discussion with him about performing a CTA of the chest with contrast. I am also having a repeat of his troponin and repeat twelve-lead EKG. 04/28/24 17:40 Repeat twelve-lead EKG was interpreted by me. This was performed on 04/28/2024 at 1735. Heart rate is 72 bpm. Rhythm is sinus rhythm. There is normal axis deviation, normal QRS and normal intervals. QTc is 454. There is no evidence of acute ischemia. 04/28/24 20:31 CT scan of the chest with contrast was interpreted by the radiologist and I reviewed the impression. The impression states negative pulmonary embolus exam. Emphysema. Nothing acute. There is bilateral dependent atelectasis. 04/28/24 20:32 Clinically, the patient denies chest pain or shortness of breath. Counseled pt/family regarding: lab results, diagnosis, need for follow-up, rad results Medical Desision Making - Diagnostic Testing Diagnostic test were ordered, analyzed, and reviewed by me: Yes Radiological Interpretation: Reviewed by me, Teleradiologist Report - Risk of complications The pt has a mod risk of morbidity or mortality based on: Need for prescription drug management - Departure Departure Disposition: Home Clinical Impression: Acute right-sided back pain, Pain on movement of skeletal muscle Condition: Stable Critical Care Time: No Referrals: VARUN KOTHARI MD [Primary Care Provider] - Follow up/PCP as directed Additional Instructions: Take your medications as prescribed. Call your primary care provider on 05/01/2024, to make arrangements for follow-up appointment for further evaluation management. Return to the emergency department if symptoms recur Prescriptions: Orphenadrine Citrate 100 mg [Norflex 100 MG Tablet] 100 mg PO BID #10 tab
[2024-04-28 13:56] VITALS: TEMP 97.2
[2024-04-28] MEDS ORDERED: Zofran 4 MG/2 ML VIAL ONE (14:35)
[2024-04-28 14:36] LABS: Absolute Neutrophil Ct (ANC) 4.84 x10^3/uL (1.78-5.38); BASOPHIL % 0.6 % (0.2-1.2); Basophil (Absolute #) 0.05 x10^3/uL (0.01-0.08); Eosinophil % 2.1 % (0.8-7.0); Eosinophil (Absolute #) 0.17 x10^3/uL (0.04-0.54); Hemoglobin 17.4 g/dL (13.7-17.5); IMMATURE GRAN # 0.02 x10^3u/L (0.001-0.031); IMMATURE GRAN % 0.2 % (0.001-0.429); Lymphocyte (Absolute #) 2.28 x10^3/uL (1.32-3.57); Lymphocytes % 28.1 % (21.8-53.1); Mean Cell Volume 88.6 fL (79.0-92.2); Mean Corpuscular Hemoglobin 29.6 pg (25.7-32.2); Mean Corpuscular Hgb Concent. 33.5 g/dL (32.3-36.5); Mean Platelet Volume 10.2 fL (9.4-12.4); Monocyte (Absolute #) 0.74 x10^3/uL (0.30-0.82); Monocytes % 9.1 % (5.3-12.2); Neutrophil % 59.9 % (34.0-67.9); Platelet Count 250 x10^3/uL (163-337); Red Blood Count 5.87 x10^6/uL (4.63-6.08); Red Cell Distribution Width 13.4 % (11.6-14.4); White Blood Count 8.1 x10^3/uL (4.23-9.07)
[2024-04-28] MEDS: Zofran 4 MG/2 ML VIAL IV ONE (14:37)
[2024-04-28 14:42] LABS: ALBUMIN 4.7 g/dL (3.5-5.0); ANION GAP 15.7 MEQ/L (5-15); BILIRUBIN,TOTAL 0.7 mg/dL (0.2-1.3); Calcium 9.1 mg/dL (8.4-10.2); Creatinine 1 0.77 mg/dL (0.66-1.25); EST GLOMERULAR FILTRATION RATE 104.4 ML/MIN; Potassium 4.7 mmol/L (3.5-5.1); Total Protein 8.2 g/dL (6.3-8.2)
[2024-04-28 14:45] LABS: Appearance Clear (Clear); Bacteria None Seen /HPF (None Seen); Bilirubin Negative (Negative); Blood Negative (Negative); Epithelial Cells None Seen /HPF (None Seen); Glucose, Urine >=1000 mg/dL (Negative); Hyaline Casts NONE SEEN /LPF (0-2); Ketones Negative (Negative); Leukocyte Esterase Negative (Negative); Nitrite Negative (Negative); Ph 6.5 (4.6-8.0); Protein,Urine Dip Negative (Negative); RBC 0-2 /HPF (0-5); Specific Gravity >=1.030 (1.005-1.030); Urobilinogen 0.2 mg/dL (0.2); WBC 0-2 /HPF (0-5)
[2024-04-28] MEDS ORDERED: MORPHINE SULFATE 10 MG/ML ONE (14:47)
[2024-04-28] MEDS: MORPHINE SULFATE 10 MG/ML IV ONE ×2 (14:51→18:23)
--- NOTE | 2024-04-28 16:03 | XRAY ---
Indication: Right flank pain. Multiple contiguous axial images obtained through abdomen and pelvis without contrast using renal stone protocol. Comparison: February 16, 2022. Lung bases not demonstrate mild dependent atelectasis. Stable small right middle lobe bleb. No infiltrate or effusion. Heart not enlarged. No renal calculus or evidence for obstructive uropathy in either system. Noncontrasted stomach and bowel loops appear nonobstructed again with normal appendix. There remains mild diffuse scattered colonic fecal debris. Stable large left lower renal cysts, cholecystectomy, tiny hepatic/splenic calcified granulomas, and enlarged prostate gland. No free fluid/air. Remaining liver, pancreas, spleen, adrenal glands, kidneys, ureters, and bladder are unremarkable for noncontrast exam. Again mild scattered aortoiliac calcifications without AAA. Osseous structures intact again with minimal degenerative changes throughout thoracolumbar spine. Impression: 1. Continued negative renal calculus or evidence for obstructive uropathy. 2. Again mild diffuse fecal stasis, left renal cysts, enlarged prostate gland, arteriosclerotic disease, and degenerative spondylosis. 3. No new/acute findings on this noncontrast exam.
[2024-04-28] MEDS ORDERED: MORPHINE SULFATE 2 MG INJ ONE (18:25)
[2024-04-28] MEDS ORDERED: Sodium Chloride 0.9% 500 ML 500 ML IV ONE (18:26)
[2024-04-28] MEDS: MORPHINE SULFATE 2 MG INJ IV ONE (18:34)
[2024-04-28] MEDS: Sodium Chloride 0.9% 500 ML 500 ML IV ONE (18:35)
[2024-04-28 20:07] VITALS: O2SAT 92
[2024-04-28] MEDS ORDERED: PERCOCET TABLET 5/325MG ONE (21:16)
[2024-04-28] MEDS: PERCOCET TABLET 5/325MG PO STA (21:17)
[2024-04-28 21:25] VITALS: BP 114/71; PULSE 78; RESP 18
--- NOTE | 2024-04-29 07:58 | XRAY ---
Indication: Back pain. Elevated d-dimer. Multiple contiguous axial images obtained through the chest using 80 cc Isovue-370 contrast and PE protocol. Comparison: June 06, 2020 Good opacification pulmonary arteries to include lobar and segmental branches. No pulmonary embolus. Heart not enlarged. Aorta again demonstrates minimal arteriosclerotic disease without aneurysm/dissection. Stable small mediastinal and bilateral hilar calcified nodes. No pathologic mediastinal/hilar lymphadenopathy. Lungs again demonstrates mild diffuse pulmonary emphysema and a few tiny bilateral calcified granulomas. Incidental moderate bibasilar dependent atelectasis. No suspicious pulmonary mass/nodule, infiltrate, or effusion. Bony thorax intact again with mild degenerative changes throughout spine. CT abdomen/pelvis reported separately. Impression: 1. Continued negative pulmonary embolus. No new/acute cardiopulmonary abnormalities. 2. Again incidental pulmonary emphysema, arteriosclerotic disease, degenerative spondylosis, and old granulomatous disease.
== END 2024-04-28 21:30 | disposition home or self-care (01) ==
LOC: ED 13:19
DX: M54.9 Dorsalgia, unspecified (principal); R10.9 Unspecified abdominal pain; I10 Essential (primary) hypertension; E11.42 Type 2 diabetes mellitus with diabetic polyneuropathy; Z79.891 Long term (current) use of opiate analgesic; Z79.4 Long term (current) use of insulin; Z79.85 Long-term (current) use of injectable non-insulin antidiabetic drugs; Z79.899 Other long term (current) drug therapy; Z72.0 Tobacco use
CPT/HCPCS: 36415; 71260; 74176; 80053; 81001; 82150; 83690; 84484; 85025; 85379; 96361; 96374; 96375; 96376; 99285; J2270; J2405; A9270-GY

== ENCOUNTER 2025-01-14 13:27 | Emergency (ER) | payer BC ==
[2025-01-14 13:50] VITALS: TEMP 98.3
[2025-01-14 14:10] VITALS: BP 131/72; RESP 18; O2SAT 95
[2025-01-14] MEDS ORDERED: TORAdol 30 mg Injection ONE (14:11)
[2025-01-14] MEDS ORDERED: Valium 5 MG ONE (14:12)
[2025-01-14] MEDS: Valium 5 MG PO ONE (14:13)
[2025-01-14] MEDS: TORAdol 30 mg Injection IM ONE (14:13)
--- NOTE | 2025-01-14 14:15 | ERPHSYRPT ---
- History of Present Illness Time Seen by Provider: 01/14/25 13:35 Source: patient Exam Limitations: no limitations Patient Subjective Stated Complaint: pt here for pain to back of neck and scapula for 2 weeks now, denies any injury, he reports that it is not painful at rest but intense pain with movement of right arm, he feels hes right hand is colder that left, was seen last week and had x ray and is scheduled for mri next week, has has tried heat and muscle relaxer at home Triage Nursing Assessment: pt alert, walked in gait steady, able to undress,resp easy, skin w/d/p. no tnderness with palpation, has strong radial pulse, nailbeds pink Physician History: 59-year-old male presents to the emergency room right-sided pain patient reports his pain in his his right scapula and radiates down his right arm patient reports he had cervical spine x-ray done earlier in the week which showed some C5-C6 disc issues patient reports he has been taking Flexeril with minimal improvement denies any fevers denies any trauma denies any falls denies any headache patient is now in ED for further eval Occurred: last week Method of Injury: unknown Quality: intermittent Severity of Pain-Max: mild Severity of Pain-Current: mild Extremities Pain Location: shoulder: right Modifying Factors: Improves With: nothing Associated Symptoms: none Allergies/Adverse Reactions: hydromorphone HCl [From Dilaudid] Adverse Reaction (Verified 01/14/25 13:39) ANXIETY itching Home Medications: Metoprolol Tartrate 25 mg PO DAILY 04/11/21 [History] Losartan/Hydrochlorothiazide [Losartan-Hctz 50-12.5 mg Tab] 1 each PO DAILY 04/28/24 [History] Simvastatin 20Mg [Zocor 20Mg] 20 mg PO DAILY 04/28/24 [History] Empagliflozin [Jardiance] 10 mg PO DAILY 08/24/24 [History] Insulin Degludec [Tresiba Flextouch U-100] 64 units SQ BID 08/24/24 [History] Ezetimibe 10 mg [Zetia 10 MG] 10 mg PO DAILY 09/10/24 [History] Insulin Aspart [Novolog] 30 unit SQ .AFTER EVERY MEAL 09/10/24 [History] Semaglutide [Ozempic] 2 mg SQ WEEKLY 09/10/24 [History] Hx Tetanus, Diphtheria Vaccination/Date Given: No Hx Influenza Vaccination/Date Given: No Hx Pneumococcal Vaccination/Date Given: No Immunizations Up to Date: Yes Travel Risk - International Travel Have you traveled outside of the country in past 3 weeks: No - Emerging Infectious Disease Are you exhibiting symptoms associated with any current EIDs: No - Review of Systems Constitutional: No Fever, No Chills Eyes: No Symptoms Ears, Nose, & Throat: No Symptoms Respiratory: No Cough, No Dyspnea Cardiac: No Chest Pain, No Edema, No Syncope Abdominal/Gastrointestinal: No Abdominal Pain, No Nausea, No Vomiting, No Diarrhea Genitourinary Symptoms: No Dysuria Musculoskeletal: Joint Pain, No Back Pain, No Neck Pain Skin: No Rash Neurological: No Dizziness, No Focal Weakness, No Sensory Changes Psychological: No Symptoms Endocrine: No Symptoms All Other Systems: Reviewed and Negative - Past Medical History Pertinent Past Medical History: Yes Neurological History: No Pertinent History, Peripheral Neuropathy ENT History: No Pertinent History Cardiac History: Hypertension Respiratory History: COPD Endocrine Medical History: Diabetes Type II Musculoskeletal History: Osteoarthritis GI Medical History: Pancreatitis History: No Pertinent History Psycho-Social History: Anxiety Male Reproductive Disorders: No Pertinent History Other Medical History: NOTES HISTORY OF BACK PAIN, HISTORY OF BULDGING DISCS. - Past Surgical History Past Surgical History: Yes Neuro Surgical History: No Pertinent History Cardiac: No Pertinent History Respiratory: No Pertinent History Gastrointestinal: Cholecystectomy Genitourinary: No Pertinent History Musculoskeletal: Orthopedic Surgery Male Surgical History: No Pertinent History Other Surgical History: carpal tunnel L hand - Social History Smoking Status: Current every day smoker How long have you smoked: 40 yrs Exposure to second hand smoke: Yes Drug Use: none - Social Determinants of Health Will the patient participate in the screening: Declined to provide - Nursing Vital Signs Nursing Vital Signs: Initial Vital Signs Temperature 98.3 F 01/14/25 13:35 Pulse Rate 89 01/14/25 13:35 Respiratory Rate 16 01/14/25 13:35 Blood Pressure 151/81 01/14/25 13:35 O2 Sat by Pulse Oximetry 94 L 01/14/25 13:35 Pain Scale Pain Intensity 9 - Physical Exam General Appearance: alert Eyes, Ears, Nose, Throat Exam: moist mucous membranes Neck Exam: non-tender, supple Cardiovascular/Respiratory Exam: chest non-tender, normal breath sounds, regular rate/rhythm, no respiratory distress Abdominal Exam: non-tender, No guarding Back Exam: normal inspection, No vertebral tenderness Elbow/Forearm Exam: limited ROM, pain Neuro/Tendon Exam: normal sensation, normal motor functions Mental Status Exam: alert, oriented x 3, cooperative Skin Exam: normal color, warm, dry SpO2: 95 Ordered Tests: Active Orders 24 hr Category Date Time Status Sling Application STAT Care 01/14/25 14:14 Active Medication Summary Discontinued Medications Generic Name Dose Route Start Last Admin Trade Name Chaz PRN Reason Stop Dose Admin Diazepam 5 mg 01/14/25 13:59 01/14/25 14:13 Diazepam 5 Mg Tablet PO 01/14/25 14:00 5 mg STAT ONE Administration Diazepam Confirm 01/14/25 14:12 Diazepam 5 Mg Tablet Administered 01/14/25 14:13 Dose 5 mg .ROUTE .STK-MED ONE Ketorolac Tromethamine 15 mg 01/14/25 13:59 01/14/25 14:13 Ketorolac Tromethamine 30 Mg/Ml Inj IM 01/14/25 14:00 15 mg STAT ONE Administration Ketorolac Tromethamine Confirm 01/14/25 14:11 Ketorolac Tromethamine 30 Mg/Ml Inj Administered 01/14/25 14:12 Dose 30 mg .ROUTE .STK-MED ONE - Progress Progress Note: 01/14/25 14:14 Patient was given Valium and shot of Toradol will be given a sling for comfort and recommend patient follow-up with [facility] - Departure Departure Disposition: Home Clinical Impression: Pain in scapula Condition: Stable Critical Care Time: No Referrals: VARUN KOTHARI MD [Primary Care Provider, FAMILY PRACTICE] - Follow up/PCP as directed DARIELA MITCHELL MD [NON-STAFF PHY W/O PRIVILEGES, ORTHOPEDICS] - Follow up/PCP as directed TIM MITCHELL DO [ACTIVE STAFF, ORTHOPEDICS] - Follow up/PCP as directed Instructions: Cervical Muscle Strain (DC), Generalized Neck Pain (DC) Forms: Work/School Release Form Prescriptions: Diazepam 5 mg [Valium 5 MG] 5 mg PO BIDPRN PRN #10 tablet PRN Reason: Muscle Spasms
[2025-01-14 15:01] VITALS: PULSE 70
== END 2025-01-14 15:00 | disposition home or self-care (01) ==
LOC: ED 13:27
DX: M25.511 Pain in right shoulder (principal); I10 Essential (primary) hypertension; E11.9 Type 2 diabetes mellitus without complications; Z79.4 Long term (current) use of insulin; Z79.84 Long term (current) use of oral hypoglycemic drugs; Z79.85 Long-term (current) use of injectable non-insulin antidiabetic drugs; Z79.899 Other long term (current) drug therapy; Z72.0 Tobacco use